=== PATIENT | male | born 1990 | race Caucasian/White ===

== ENCOUNTER 2022-09-02 09:16 | Emergency (ER) | payer MEDICAID ==
[~2022-09-02] VITALS: Ht 157.5 cm; Wt 52.2 kg
[2022-09-02 09:29] VITALS: BP 131/61
--- NOTE | 2022-09-02 10:16 | NUR ---
PT TAKEN TO ER BED 11
--- NOTE | 2022-09-02 10:42 | NUR ---
OBSERVED TO BE AWAKE AND QUIET IN WAITING ROOM. BECAME AGITATED WHEN BROUGHT IN TO ROOM. ASSISTED TO BED AND CHAGE TO GOWN, NO GUARDING OR GRIMACING WHEN ASSISTED BY STAFF
[2022-09-02] MEDS ORDERED: KETOROLAC 60 MG/2 ML VIAL IM ONE (10:55)
--- NOTE | 2022-09-02 11:13 | NUR ---
PT TAKEN TO CT VIA SHAUN
[2022-09-02] MEDS ORDERED: SODIUM PHOSPHATE 118 ML ENEM RC ONE (12:45)
--- NOTE | 2022-09-02 13:00 | NUR ---
PER PT SAM PLACE PITTS TO MEASURE AMOUNT OF URINE REMOVED, WILL CONTINUE DURING DISCHARGE
[2022-09-02 13:33] LABS: BASOPHILS % (AUTO) 0.1 % (0.0-2.0); EOSINOPHILS % (AUTO) 0.7 % (0.0-4.0); HEMATOCRIT 35.7 % (36-52); HEMOGLOBIN 12.2 g/dL (12.0-18.0); LYMPHOCYTES # (AUTO) 0.9 K/uL (2.0-11.5); LYMPHOCYTES % (AUTO) 12.7 % (20.5-51.1); MEAN CORPUSCULAR HEMOGLOBIN 33 pg (27-31); MEAN CORPUSCULAR HGB CONC 34 g/dL (33-37); MEAN CORPUSCULAR VOLUME 95.1 fL (80-94); MONOCYTES # (AUTO) 0.4 K/uL (0.8-1.0); MONOCYTES % (AUTO) 5.4 % (1.7-9.3); NEUTROPHILS # (AUTO) 5.7 K/uL (1.8-7.7); NEUTROPHILS % (AUTO) 81.1 % (42.2-75.2); PLATELET COUNT (AUTO) 50 K/uL (140-450); RED BLOOD CELL COUNT(AUTO) 3.75 MIL/uL (4.20-6.10); RED CELL DISTRIBUTION WIDTH 14.1 % (11.6-13.7)
[2022-09-02 13:39] VITALS: BP 128/61
[2022-09-02 13:42] LABS: APPEARANCE,URINE CLEAR (CLEAR); BILIRUBIN,URINE NEGATIVE (NEGATIVE); BLOOD, URINE NEGATIVE (NEGATIVE); COLOR,URINE YELLOW (YELLOW); LEUKOCYTE ESTERASE ,URINE TRACE (NEGATIVE); NITRITE, URINE NEGATIVE (NEGATIVE); UGLUCOSE NEGATIVE (NEGATIVE)
[2022-09-02 14:00] LABS: RBC,URINE 0-5 /HPF (0-5); WBC,URINE 0-5 /HPF (0-5)
[2022-09-02 14:19] LABS: ALBUMIN 2.7 g/dL (3.4-5.0); ANION GAP 14.9 (8-16); CARBON DIOXIDE 22.4 mmol/L (21-32); CREATININE 0.8 mg/dL (0.6-1.3); POTASSIUM 4.3 mmol/L (3.5-5.1); TOTAL BILIRUBIN 0.3 mg/dL (0.0-1.0)
[2022-09-02] MEDS ORDERED: CIPR500T4 PO (14:29)
--- NOTE | 2022-09-02 14:51 | NUR ---
PITTS DISCONTINUED REMOVED 1200CC OF CLOUDY ALEX COLORED URINE, NOTED LARGE SOFT BOWEL MOVEMENT, CHANGED DIAPER AND KEPT CLEAN AND DRY.
--- NOTE | 2022-09-02 14:52 | NUR ---
Patient discharged with v/s stable. Written and verbal after care instructions ABOUT CONSTIPATION AND ACUTE URINARY RETENTION given and explained. Patient alert, oriented and verbalized understanding of instructions. Ambulatory with steady gait. All questions addressed prior to discharge. ID band removed. Patient advised to follow up with PMD. Rx of CIPRO given. Patient educated on indication of medication including possible reaction and side effects. Opportunity to ask questions provided and answered.
== END 2022-09-02 14:52 | disposition home or self-care (01) ==
LOC: MED 09:16
DX: N13.9 Obstructive and reflux uropathy, unspecified (principal); K59.00 Constipation, unspecified; R10.9 Unspecified abdominal pain; Z79.899 Other long term (current) drug therapy
CPT/HCPCS: 36415; 71045; 74176; 80053; 81001; 83690; 85025; 87086; 96372; 99285; J1885

== ENCOUNTER 2022-10-14 09:48 | Inpatient (IN) | payer MEDICAID ==
[~2022-10-14] VITALS: Ht 162.6 cm; Wt 59.0 kg
[~2022-10-14 09:48] MED LIST: CIPR500T4 PO
--- NOTE | 2022-10-14 09:48 | NUR ---
Patient BIBA to bed 6.
[2022-10-14 09:52] VITALS: BP 93/68
[2022-10-14] MEDS ORDERED: OLANZapine 10 MG VIAL IM ONE ×2 (09:54→09:55)
[2022-10-14] MEDS ORDERED: NACL 0.9% 1,000 ML IV ONE ×2 (09:55→14:05)
[2022-10-14] MEDS ORDERED: DEXTROSE 50% 50 ML SYR IVP ONE (09:56)
[2022-10-14 10:46] LABS: HEMOGLOBIN 12.1 g/dL (12.0-18.0); MEAN CORPUSCULAR HEMOGLOBIN 33 pg (27-31); MEAN CORPUSCULAR HGB CONC 34 g/dL (33-37); MEAN CORPUSCULAR VOLUME 97.4 fL (80-94); RED CELL DISTRIBUTION WIDTH 17.5 % (11.6-13.7); WHITE BLOOD COUNT (AUTO) 14.5 K/uL (4.8-10.8)
[2022-10-14] MEDS ORDERED: PIPERACILLIN/TAZOBACTAM 3.375 GM in DEXTROSE 5% 50 ML IV ONE (10:55)
[2022-10-14 11:15] LABS: PLATELET COUNT (AUTO) 55 K/uL (140-450)
[2022-10-14 11:34] LABS: LYMPHOCYTES % (MANUAL) 4 % (20-46); MONOCYTES % (MANUAL) 12 % (5-12)
[2022-10-14] MEDS ORDERED: PIPERACILLIN/TAZOBACTAM 3.375 GM VIAL IV ONE ×2 (11:41→21:14)
[2022-10-14 11:42] LABS: ALBUMIN 1.8 g/dL (3.4-5.0); ANION GAP 18.3 (8-16); ASPARTATE AMINOTRANSFERASE 36 U/L (15-37); CARBON DIOXIDE 22.4 mmol/L (21-32); CHLORIDE 103 mmol/L (98-107); CREATININE 1.1 mg/dL (0.6-1.3); GFR ARICAN-AMERICAN 99 mL/min (>90); GLUCOSE 86 mg/dL (74-106); POTASSIUM 5.7 mmol/L (3.5-5.1); SODIUM SERUM 138 mmol/L (136-145); TOTAL BILIRUBIN 0.5 mg/dL (0.0-1.0); UREA NITROGEN, BLOOD 47 mg/dL (7-18)
[2022-10-14 12:53] LABS: BILIRUBIN,URINE 1+ (NEGATIVE); BLOOD, URINE 3+ (NEGATIVE); LEUKOCYTE ESTERASE ,URINE 2+ (NEGATIVE); NITRITE, URINE NEGATIVE (NEGATIVE); PH,URINE 6.5 (5.0-9.0); UGLUCOSE NEGATIVE (NEGATIVE)
[2022-10-14 13:11] LABS: APPEARANCE,URINE CLOUDY (CLEAR)
[2022-10-14 13:14] LABS: COLOR,URINE SLIGHT BLOODY (YELLOW); RBC,URINE >100 /HPF (0-5)
--- NOTE | 2022-10-14 13:18 | NUR ---
13:18 [facility], REGARDING PATIENT BEING ADMITTED.
[2022-10-14] MEDS ORDERED: CALC-1321 PO (14:31)
[2022-10-14] MEDS ORDERED: IBUP-1842 PO (14:31)
[2022-10-14] MEDS ORDERED: DOCU100T42 PO (14:31)
[2022-10-14] MEDS ORDERED: ACET-2619 PO (14:31)
[2022-10-14] MEDS ORDERED: OLAN20TA1 PO (14:31)
[2022-10-14] MEDS ORDERED: MIRABULK PO (14:31)
[2022-10-14] MEDS ORDERED: ASCO500T95 PO (14:31)
[2022-10-14] MEDS ORDERED: CLON1TAB PO (14:31)
[2022-10-14] MEDS ORDERED: PRON INH (14:31)
[2022-10-14] MEDS ORDERED: SERT25TA PO (14:31)
[2022-10-14] MEDS ORDERED: FAMO-90 PO (14:31)
[2022-10-14] MEDS ORDERED: ROB1 PO (14:31)
[2022-10-14] MEDS ORDERED: BUS5 PO (14:31)
[2022-10-14] MEDS ORDERED: MULT-2540 PO (14:31)
--- NOTE | 2022-10-14 15:16 | NUR ---
Patient will be admitted to care of or . Admited to Tele. Will go to room 124A. Belongings list completed. Report to SARA SNOWDEN.
--- NOTE | 2022-10-14 15:30 | NUR ---
RECEIVED PATIENT FROM ED. PATIENT TURNS AND TWISTS WHILE LYING ON BED. PATIENT VITALS CHECKED AND STABLE. PLAN OF CARE STARTED.
--- NOTE | 2022-10-14 19:20 | NUR ---
PATIENT SEEN LYING ON BED AWAKE. ENDORSED PATIENT TO PM NURSE FOR CONTINUATION OF CARE.
--- NOTE | 2022-10-14 19:25 | NUR ---
RECEIVED REPORT FROM DAY SHIFT RN FOR CONTINUITY OF CARE. PT IS RESTING IN BED NOT IN ANY DISTRESS. PT IS ON RA SATING 95%. BREATHING EVEN AND UNLABORED. PT HAS RIGHT HAND 20 GAUGE SALINE LOCK. POC DISCUSSED. SAFETY MEASURES TAKEN. WILL CONTINUE TO MONITOR THE PT.
[2022-10-14 20:00] VITALS: BP 112/75
[2022-10-14] MEDS ORDERED: ONDANSETRON 4 MG/2 ML VIAL IM/IVP PRN (20:35)
[2022-10-14] MEDS ORDERED: HYDROcodone/APAP 7.5/325 MG 1 TAB PO PRN (20:35)
[2022-10-14] MEDS ORDERED: ZOLPIDEM 5 MG TAB PO PRN (20:35)
[2022-10-14] MEDS ORDERED: DOCUSATE SODIUM 100 MG GELCAP PO PRN (20:35)
[2022-10-14] MEDS ORDERED: POTASSIUM CHLORIDE 10 MEQ TABER PO PRN (20:35)
[2022-10-14] MEDS ORDERED: guaiFENesin DM 200/20 MG-10 ML 10 ML UDC PO PRN (20:35)
--- NOTE | 2022-10-14 21:00 | NUR ---
PT IV ON RIGHT HAND WAS NOT WORKING. NEW IV INSERTED ON RIGHT FOREARM 20 GAUGE. PATENT AND INTACT.
[2022-10-14 21:05] LABS: CHOL/HDL RATIO 1.8 (1-4.5); FREE T4 (FREE THYROXINE) 1.38 ng/dL (0.76-1.46); PHOSPHORUS 5.9 mg/dL (2.5-4.9); THYROID STIMULATING HORMONE 10.23 uIU/mL (0.34-3.74)
[2022-10-14] MEDS: PIPERACILLIN/TAZOBACTAM 3.375 GM in DEXTROSE 5% 50 ML IV SCH (21:22)
--- NOTE | 2022-10-14 21:22 | NUR ---
SCHEDULE MEDICATION GIVEN. NO ADVERSE REACTION NOTED. WILL CONTINUE TO MONITOR THE PT.
[2022-10-15] VITALS: BP 116/64
[2022-10-15] MEDS ORDERED: PIPERACILLIN/TAZOBACTAM 3.375 GM VIAL IV ONE ×2 (00:12→05:31)
[2022-10-15] MEDS: PIPERACILLIN/TAZOBACTAM 3.375 GM in DEXTROSE 5% 50 ML IV SCH ×5 (00:54→23:35)
--- NOTE | 2022-10-15 00:59 | NUR ---
TUBE FEEDING STARTED PER MD ORDER.
[2022-10-15 04:00] VITALS: BP 98/50
[2022-10-15 05:33] LABS: EOSINOPHILS # (AUTO) 0.1 K/uL (0-0.4); EOSINOPHILS % (AUTO) 0.4 % (0.0-4.0); HEMATOCRIT 32.1 % (36-52); HEMOGLOBIN 10.9 g/dL (12.0-18.0); LYMPHOCYTES # (AUTO) 0.5 K/uL (2.0-11.5); LYMPHOCYTES % (AUTO) 3.9 % (20.5-51.1); MEAN CORPUSCULAR HEMOGLOBIN 33 pg (27-31); MEAN CORPUSCULAR HGB CONC 34 g/dL (33-37); MEAN CORPUSCULAR VOLUME 97.2 fL (80-94); NEUTROPHILS % (AUTO) 86.7 % (42.2-75.2); PLATELET COUNT (AUTO) 58 K/uL (140-450); RED CELL DISTRIBUTION WIDTH 17.8 % (11.6-13.7); WHITE BLOOD COUNT (AUTO) 11.6 K/uL (4.8-10.8)
--- NOTE | 2022-10-15 05:55 | NUR ---
PT WAS CLEANED AND CHANGED. TOLERATED IT WELL.
[2022-10-15 05:57] LABS: ANION GAP 14.7 (8-16); CARBON DIOXIDE 24.2 mmol/L (21-32); CREATININE 0.9 mg/dL (0.6-1.3); POTASSIUM 4.9 mmol/L (3.5-5.1)
[2022-10-15] MEDS: ALBUTEROL SULFATE/IPRATROPIU 3 ML SOL IH SCH ×4 (07:06→19:47)
--- NOTE | 2022-10-15 07:26 | NUR ---
ENDORSED PT TO DAY SHIFT NURSE FOR CONTINUITY OF CARE. PT IS STABLE.
--- NOTE | 2022-10-15 07:27 | NUR ---
RECEIVED PATIENT FROM PM SHIFT NURSE FOR CONTINUATION OF CARE. PATIENT SEEN ON BED ASLEEP WITH NORMAL RISE AND FALL OF CHEST. PATIENT CARE PLAN AND MONITORING RESUMED.
[2022-10-15 08:00] VITALS: BP 112/75
--- NOTE | 2022-10-15 08:37 | NUR ---
PT RESTING IN BED WITH NO RESPIRATORY DISTRESS NOTED. SATURATION WAS 95% ON ROOM AIR. PT DID NOT TOLERATE MASK FOR HHN TREATMENT. PT BECAME AGITATED. INSTEAD USED MOUTHPIECE. PT WAS COMPLIANT. NO ADVERSE REACTIONTO TREATMENT NOTED. WILL CONTINUE TO MONITOR PT.
--- NOTE | 2022-10-15 09:00 | NUR ---
RESIDUAL VOLUME CHECKED PRIOR TO MEDICATION ADMINISTRATION. RESIDUAL VOLUME 10ML
--- NOTE | 2022-10-15 09:00 | NUR ---
PATIENT IN PAIN WHILE BEING CHANGED. PULLED PRESCRIBED MORPHINE PRN MEDICATION. ADMINISTERED MORPHINE. EVALUATION OF PAIN WILL BE RECHECKED AT 0930.
--- NOTE | 2022-10-15 09:05 | NUR ---
PATIENT HAS BEEN SCREENED AND CATEGORIZED HIGH NUTRITION RISK. PATIENT WILL BE SEEN WITHIN 1-2 DAYS OF ADMISSION. 10/14/22-10/16/22 REFERRAL RECIVED FOR TUBE FEEDING ON 10/15/22 PT WILL BE SEEN WITHIN 1-2 DAYS. REVIEWED BY SORAYA JEFFERS RD
--- NOTE | 2022-10-15 09:30 | NUR ---
PATIENT RELAXED WITH NEW LINENS AND GOWNS.
[2022-10-15] MEDS: OLANZapine 5 MG TAB PO SCH (10:17)
[2022-10-15] MEDS: SERTRALINE 50 MG TAB PO SCH (10:18)
[2022-10-15] MEDS: busPIRone 5 MG TAB PO SCH (10:18)
[2022-10-15] MEDS: PANTOPRAZOLE 40 MG TABEC PO SCH (10:18)
--- NOTE | 2022-10-15 11:18 | NUR ---
DC PLANNIN YRS OLD MALE PATINT WAS ADMITTED FROM CARE HOME WITH A DX OF SEPSIS AND PNEUMONIA. PATIENT HAS A HX OF CEREBRAL PALSY ,INTELLECTUAL DISABILITY, G-TUBE. CXR SHOWED RT MULTILOBAR PNEUMONIA. RAPID COVID TEST NEGATIVE. ADMINISTERED IVF, IV ABX ZOSYN AND CONTINUED HOME MEDS. CONSULTED WITH PULMO. DC PLAN TO RETURN TO CARE HOME. CM TO FOLLOW Addendum: 10/21/22 at 1143 by JUSTIN DE JESUS CM DC PLANNING STILL INTUBATED.ON CPAP TODAY.ON LEVOPHED,FENTANYL AND PROPOFOL.HAD 1 UNIT PRBC FOR HBG 6.5.LATEST 7.7.CM TO FOLLOW. Addendum: 10/23/22 at 1123 by JUSTIN DE JESUS CM DC PLANNING PT STILL VENTED.TOLERATING CPAP TRIALS THE PAST 2 DAYS.STILL ON PRESSOR ,PROPOFOL AND FENTANYL DRIPS.TALKED TO CM IRC ([facility]) CM REGARDING MEDICAL DECISION MAKER.CONSENT CAN BE GIVEN BY SAME CM, JUSTIN ORBINRAIZA @ FOR INVASIVE PROCEDURES.CM TO FOLLOW. Addendum: 10/25/22 at 1344 by JUSTIN DE JESUS CM DC PLANNING PATIENT STILL INTUBATED BUT TOLERATING DAILY CPAP TRIALS.ON LEVO,FENTANYL,PROPOFOL AND PRECEDEX DRIPS.VENT SUPPORT PER PULMO.CM TO FOLLOW. Addendum: 10/29/22 at 1635 by JUSTIN DE JESUS CM DC PLANNING FAILING CPAP TRIALS.CONSENT FOR TRACHEOSTOMY BEING OBTAINED FROM [facility] .THORACENTESIS DONE .STILL ON LEVOPHED AND PROPOFOL DRIPS.PULMO FOLLOWING.CM TO FOLLOW. Addendum: 10/31/22 at 0835 by JUSTIN DE JESUS CM DC PLANNING CONSENT FOR TRACHEOSTOMY FAXED YESTERDAY TO ICU.PATIENT IS SCHEDULED FOR TRACHEOSTOMY AT 1120 TODAY.CM TO FOLLOW. Addendum: 11/05/22 at 1411 by JUSTIN DE JESUS CM DC PLANNING PATIENT ON MIDODRINE .LEVOPHED TITRATED DOWN.B/P STABLE SO FAR.FOR TRACHEOSTOMY TODAY.NOT DONE YESTERDAY.PATIENT HAS A PEG ALREADY.DC PLAN- TO [facility] WHEN STABLE FOR SNF PLACEMENT.CM TO FOLLOW. Addendum: 11/06/22 at 1422 by JUSTIN DE JESUS CM DC PLANNING TRACHEOSTOMY NOT DONE 11/05/22.LEVOPHED RESTARTED.ON FENTANYL AND PROPOFOL DRIPS.FOR TRACH TOMORROW.
--- NOTE | 2022-10-15 11:30 | NUR ---
NUTRITION CHANGED RATE OF TUBE FEEDING TO 60ML/HR 150 ML WATER Q6H
[2022-10-15 12:00] VITALS: BP 96/62
--- NOTE | 2022-10-15 12:18 | NUR ---
DC PLANNING ASSESSMENT COMPLETE PLEASE REFER TO ASSESSMENT FOR ADDITIONAL DETAILS RYANNE REPORTS DC PLAN IS FOR PT TO RETURN TO [facility], ONCE MEDICALLY STABLE. PT IS A 32 YR OLD MALE ADMITTED TO [facility] FROM [facility] ([facility]) WITH DX OF PNA/SEPSIS. PT IS [facility] CONNECTED; MARCELA SEVERINO; JUSTIN FERGUSON [phone]. [facility] IS REPORTED TO PROVIDE ALL MEDICAL CONSENTS. PATIENT IS REPORTED TO HAVE NO FAMILY INVOLVEMENT. Addendum: 10/15/22 at 1220 by Kareem Choi SS Amended: Links added.
--- NOTE | 2022-10-15 14:19 | NUR ---
PT NOT GIVEN TREATMENT AT 1333. ORDER IS Q6 WHILE AWAKE. PATIENT WAS ASLEEP AND BECAME VERY AGITATED WHEN I TRIED TO WAKE HIM UP. HE DID NOT WANT TO WAKE UP AND DID NOT WANT THE TXN.
--- NOTE | 2022-10-15 15:24 | NUR ---
10/15/22 INITIAL ASSESSMENT COMPLETED PLEASE REFER TO NUTRITION ASSESSMENT UNDER CARE ACTIVITY FOR ESTIMATED NUTRITIONAL NEEDS. 1. RECOMMEND INCREASING TO GLUCERNA 1.2 @ 60 ML/HR TOLERATED -FWF: 150 ML Q6H - INCREASE BY 10 ML Q4H TOLERATED. -AT GOAL RATE, PATIENT WILL RECEIVE 1440 ML VOLUME, 1728 KCAL, 79 GRAMS PROTEIN AND 1762 ML FW. THIS MEETS 100% OF PATIENTS ESTIMATED NUTRIENT NEEDS. -IF EXTUBATED RECOMMEND SWALLOW EVAL. 2. MONITOR GI, GASTRIC RESIDUALS, AND LAB VALUES 3. RD TO FOLLOW-UP 3-5 DAYS, MODERATE RISK REVIEWED BY SORAYA JEFFERS RD
[2022-10-15 16:00] VITALS: BP 101/63
--- NOTE | 2022-10-15 18:00 | NUR ---
PATIENT COUGHED UP SPUTUM, BUT WAS NOT ENOUGH TO COLLECT
--- NOTE | 2022-10-15 19:30 | NUR ---
RECEIVED REPORT FROM DAY SHIFT RN FOR CONTINUITY OF CARE. PT IS CURRENTLY RESTING IN BED. NONVERBAL. PT HAS RIGHT FOREARM 20 GAUGE SALINE LOCK. PT IS ON GTUBE FEEDING. GLUCERNA 1.2 RATE 60 CC/HR FWF 150 CC Q6H PER FEEDER TENDER RECOMMENDATIONS. SAFETY MEASURES TAKEN. WILL CONTINUE TO MONITOR THE PT.
--- NOTE | 2022-10-15 19:30 | NUR ---
ENDORSED PATIENT TO PM NURSE FOR CONTINUATION OF CARE
--- NOTE | 2022-10-15 19:51 | NUR ---
DID NOT ADMINISTER PT'S SCHEDULED HHN TX. PT HR RANGING FROM 116-130. PT SPO2 IS 92% ON ROOM AIR, NO DISTRESS NOTED.
[2022-10-15 20:00] VITALS: BP 110/62
--- NOTE | 2022-10-15 22:39 | NUR ---
PT WAS CLEANED AND CHANGED. TOLERATED IT WELL.
[2022-10-15] MEDS: MORPHINE SULFATE 2 MG/ML SYR IVP PRN (23:40)
[2022-10-16] VITALS: BP 112/58
--- NOTE | 2022-10-16 03:01 | NUR ---
PT HR HAS BEEN TRENDING UP FROM START OF SHIFT. GOING FROM 115 TO 130S. NOW HR IS 140S. MESSAGED AUTOMOTIVE SERVICE PROFESSIONAL DR. FALL. WAITING FOR RESPONDS.
[2022-10-16] MEDS: ACETAMINOPHEN 325 MG TAB PO PRN ×3 (03:43→20:06)
--- NOTE | 2022-10-16 03:43 | NUR ---
PT IS NOW HAVING A FEVER OF 101.8. TYLENOL AND COOLING MEASURES TAKEN.
[2022-10-16 04:00] VITALS: BP 111/55
[2022-10-16] MEDS: PIPERACILLIN/TAZOBACTAM 3.375 GM in DEXTROSE 5% 50 ML IV SCH ×3 (05:13→17:27)
[2022-10-16 05:31] LABS: BASOPHILS % (AUTO) 0.1 % (0.0-2.0); EOSINOPHILS % (AUTO) 0.2 % (0.0-4.0); HEMATOCRIT 28.8 % (36-52); HEMOGLOBIN 9.8 g/dL (12.0-18.0); LYMPHOCYTES # (AUTO) 0.7 K/uL (2.0-11.5); MEAN CORPUSCULAR HEMOGLOBIN 33 pg (27-31); MEAN CORPUSCULAR HGB CONC 34 g/dL (33-37); MEAN CORPUSCULAR VOLUME 97.9 fL (80-94); MONOCYTES # (AUTO) 1.1 K/uL (0.8-1.0); MONOCYTES % (AUTO) 8.2 % (1.7-9.3); NEUTROPHILS # (AUTO) 11.4 K/uL (1.8-7.7); NEUTROPHILS % (AUTO) 86.5 % (42.2-75.2); PLATELET COUNT (AUTO) 80 K/uL (140-450); RED BLOOD CELL COUNT(AUTO) 2.94 MIL/uL (4.20-6.10); RED CELL DISTRIBUTION WIDTH 17.7 % (11.6-13.7); WHITE BLOOD COUNT (AUTO) 13.1 K/uL (4.8-10.8)
[2022-10-16 06:08] LABS: ANION GAP 14.1 (8-16); CARBON DIOXIDE 24.5 mmol/L (21-32); CREATININE 1.1 mg/dL (0.6-1.3); POTASSIUM 4.6 mmol/L (3.5-5.1)
--- NOTE | 2022-10-16 07:15 | NUR ---
RECEIVED REPORT FROM HOME INSPECTOR NURSE FOR CONTINUITY OF CARE. PT STABLE.
--- NOTE | 2022-10-16 07:20 | NUR ---
ENDORSED PT TO DAY SHIFT RN FOR CONTINUITY OF CARE. PT IS STABLE.
[2022-10-16] MEDS: ALBUTEROL SULFATE/IPRATROPIU 3 ML SOL IH SCH ×3 (07:48→19:43)
[2022-10-16 08:00] VITALS: BP 92/47
[2022-10-16] MEDS: busPIRone 5 MG TAB PO SCH (08:38)
[2022-10-16] MEDS: OLANZapine 5 MG TAB PO SCH (08:38)
[2022-10-16] MEDS: PANTOPRAZOLE 40 MG TABEC PO SCH (08:40)
[2022-10-16] MEDS: SERTRALINE 50 MG TAB PO SCH (08:41)
--- NOTE | 2022-10-16 09:00 | NUR ---
NOTIFIED THAT PTS HR WAS 130 THIS MORNING AND SHE SAID WE WILL CONTINUE TO MONITOR. SHE STATED IF IT STAYS UP THERE TO MESSAGE HER.
[2022-10-16 12:00] VITALS: BP 108/50
--- NOTE | 2022-10-16 14:06 | NUR ---
PT. WITH LOW GENIE SCALE AT HIGH RISK, CONTINUE TO FOLLOW PRESSURE INJURY PREVENTION INTERVENTIONS. -POSITIONING: TURN AND REPOSITION PATIENT Q 2H OR SOONER USE PILLOWS TO KEEP BONY PROMINENCES FROM DIRECT CONTACT WITH SURFACES USE REPOSITIONING WEDGES TO PROVIDE 30-DEGREE ANGLE FOR SIDE LYING POSITIONS OFFLOADING OR FOAM DRESSING TO ALL TUBING TO PREVENT MEDICAL DEVICES RELATED PRESSURE INJURY -RE-EVALUATING AND MANAGING INCONTINENCE MONITOR SKIN CONDITION DURING POSITION CHANGE DO NOT MASSAGE REDNESS, BONY PROMINENCES FREQUENT CHRISTOPHER-CARE AND PROVIDE BARRIER CREAMS PRN IF SOILING MOISTURE CONTROL BY OFFER BED MAGANA/URINAL /ABSORBENT PAD TO WICK AND HOLD MOISTURE KEEP SKIN DRY AND PROTECT FROM FRICTION -MANAGE FRICTION/SHEAR/MOBILITY KEEP HOB AT THE LOWEST LEVEL OF ELEVATION NO MORE THAN 30 DEGREE UNLESS OTHERWISE CONTRAINDICATED USE LIFT SHEET OR TRANSFER DEVICE TO MOVE PATIENT AND PREVENT LATERAL SHEER. PROTECT HEELS, ELBOWS BONY PROMINENCES WITH SKIN BERRIES OR FOAM DRESSING IF EXPOSED TO FRICTION OFFLOAD BILATERAL HEELS BY PLACING PILLOWS UNDER CALVES AT ALL TIMES, UNLESS OTHERWISE CONTRAINDICATED -PRESSURE REDISTRIBUTION SURFACE THERAPY TAWANNA ISOFLEX MATTRESS -NUTRITION: PLEASE FOLLOW RD RECOMMENDATIONS AND OFFER NUTRITION SUPPLEMENTS IF ORDERED. PLEASE CONTACT WOUND CARE NURSE FOR ANY QUESTION AND CHANGE OF WOUND CONDITION.
--- NOTE | 2022-10-16 14:25 | NUR ---
SATURATION 89% ON ROOM AIR; POST HHN THERAPY PLACED ON SUPPLEMENTAL OXYGEN AT 2 LPM VIA NC; SUZY/RN NOTIFIED
--- NOTE | 2022-10-16 14:28 | NUR ---
SPUTUM SAMPLE COLLECTED; FORWARDED TO LAB; SUZY/RN NOTIFIED
[2022-10-16 16:00] VITALS: BP 109/54
[2022-10-16] MEDS ORDERED: VANCOMYCIN PER PHARMACY MC PRN (18:45)
--- NOTE | 2022-10-16 19:20 | NUR ---
ENDORSED PT TO WIND TURBINE MECHANICAL ENGINEER NURSE FOR CONTINUITY OF CARE. PT STABLE AT THIS TIME.
--- NOTE | 2022-10-16 19:21 | NUR ---
RECEIVED PATIENT AWAKE, NO SOB NOTED. IV SITE TO RIGHT FOREARM SALINE LOCK. TUBE FEEDING GLUCERNA 1.2 RUNNING 60 ML/HR. BED WHEELS LOCKED IN LOW POSITION. ALL SAFETY MEASURES ARE IN PLACE. CALL LIGHT ON EASY REACH.
[2022-10-16 20:00] VITALS: BP 114/56
[2022-10-16] MEDS: VANCOMYCIN 750 MG in DEXTROSE 5% 250 ML IV SCH (20:05)
--- NOTE | 2022-10-16 20:05 | NUR ---
ADMINISTERED SCHEDULED MEDICATION PER MD ORDER.
[2022-10-17] VITALS (10 sets, daily range): BP systolic 90–123; BP diastolic 57–78
[2022-10-17] MEDS: PIPERACILLIN/TAZOBACTAM 3.375 GM in DEXTROSE 5% 50 ML IV SCH ×5 (00:08→23:12)
[2022-10-17 05:10] LABS: EOSINOPHILS % (AUTO) 0.1 % (0.0-4.0); HEMATOCRIT 27.1 % (36-52); LYMPHOCYTES # (AUTO) 0.9 K/uL (2.0-11.5); LYMPHOCYTES % (AUTO) 6.6 % (20.5-51.1); MEAN CORPUSCULAR HEMOGLOBIN 33 pg (27-31); MEAN CORPUSCULAR HGB CONC 33 g/dL (33-37); MEAN CORPUSCULAR VOLUME 98.7 fL (80-94); MONOCYTES # (AUTO) 1.1 K/uL (0.8-1.0); NEUTROPHILS # (AUTO) 12.2 K/uL (1.8-7.7); NEUTROPHILS % (AUTO) 85.3 % (42.2-75.2); PLATELET COUNT (AUTO) 92 K/uL (140-450); RED BLOOD CELL COUNT(AUTO) 2.75 MIL/uL (4.20-6.10); RED CELL DISTRIBUTION WIDTH 17.8 % (11.6-13.7); WHITE BLOOD COUNT (AUTO) 14.2 K/uL (4.8-10.8)
[2022-10-17 05:30] LABS: ANION GAP 16.3 (8-16); CARBON DIOXIDE 26.5 mmol/L (21-32); CREATININE 1.1 mg/dL (0.6-1.3); POTASSIUM 4.8 mmol/L (3.5-5.1)
--- NOTE | 2022-10-17 06:31 | NUR ---
PATIENT KEEP ON PULLING OUT HIS OXYGEN.
[2022-10-17] MEDS: ACETAMINOPHEN 325 MG TAB PO PRN (07:46)
[2022-10-17] MEDS: ALBUTEROL SULFATE/IPRATROPIU 3 ML SOL IH SCH ×3 (07:57→20:27)
--- NOTE | 2022-10-17 07:57 | NUR ---
RECEIVED ON SUPPLEMENTAL OXYGEN AT 5 LPM VIA NC SATURATION 88%; POST HHN THERAPY INCREASED FIO2 TO 6 LPM TO KEEP SATURATION GREATER THAN 90%; JANES/SARA NOTIFIED
--- NOTE | 2022-10-17 08:00 | NUR ---
GOT REPORT FROM THE NIGHT NURSE , PT KEEP REMOVING NC. ASSESSMENT IS DONE.[id number]
[2022-10-17] MEDS: PANTOPRAZOLE 40 MG TABEC PO SCH (09:00)
[2022-10-17] MEDS: OLANZapine 5 MG TAB PO SCH (09:00)
[2022-10-17] MEDS: busPIRone 5 MG TAB PO SCH (09:00)
[2022-10-17] MEDS: SERTRALINE 50 MG TAB PO SCH (09:00)
[2022-10-17] MEDS: VANCOMYCIN 750 MG in DEXTROSE 5% 250 ML IV SCH ×2 (09:09→20:12)
--- NOTE | 2022-10-17 09:48 | NUR ---
LICENSED ARCHITECT CALLED TO BEDSIDE BY PRAVEENA/SARA FOR DESCENDING OXYGEN SATURATION TO 85%; SUPPLEMENTAL OXYGEN AT 5 LPM VIA NC SATURATION NOW AT 89% TO 90%; CHANGED OXYGEN DEVICE TO A CURAPLEX/BUBBLE HUMIDIFIER AT 8 LPM TO KEEP SATURATION GREATER THAN 90%; LICENSED ARCHITECT TO MONITOR Addendum: 10/17/22 at 1031 by Peter Cannon RT CURAPLEX = CURAPLEX NASAL CANNULA
--- NOTE | 2022-10-17 10:00 | NUR ---
SUPPLEMENTAL OXYGEN AT 8 LPM VIA CURAPLEX NASAL CANNULA/BUBBLE HUMIDIFIER; SATURATION 93; ANISH/RN NOTIFIED
[2022-10-17] MEDS ORDERED: ACETAMINOPHEN 650 MG SUPP RC PRN (10:30)
[2022-10-17] MEDS ORDERED: ACETAMINOPHEN 650 MG SUPP RC ONE (10:35)
--- NOTE | 2022-10-17 10:45 | NUR ---
ACETAMINOPHEN SUPP WAS GIVEN FOR TEMP 101 INSTEAD OF THE PO. WE PROVIDED COOLING MEASURE. MNSANTIAGOUM
[2022-10-17] MEDS: MORPHINE SULFATE 2 MG/ML SYR IVP PRN (11:20)
--- NOTE | 2022-10-17 13:34 | NUR ---
AGAIN PT TEMP 103.7 TEMPORAL, GAVE AGAIN TYLENOL 650MG VIA G PORT. COOLING MEASURE IN PLACE, HR 122 BP 108/71 BREATHING 24 02 SATURATION 95%. [id number]
--- NOTE | 2022-10-17 13:50 | NUR ---
POST HHN THERAPY INCREASED FIO2 TO 10 LPM AZJAYLYNA/RN NOTIFIED; ESCROW ASSISTANT REVIEWED WITH JANES/RN PATIENT WORSENING PULMONARY STATUS AND DESCENDING SATURATION TO 90% TO 91% ON 8 LPM VIA CURAPLEX NASAL CANNULA/BUBBLE HUMIDIFIER; ESCROW ASSISTANT AND RN CONSENSUS TO CONTACT PCP DR. ANITA FALL
--- NOTE | 2022-10-17 13:50 | NUR ---
ON OR ABOUT THIS TIME WELT POCKET MACHINE OPERATOR TEXTED DR. ANITA FALL VIA [employer] CELL PHONE ON CURRENT PATIENT WORSENING PULMONARY STATUS; BREATH SOUNDS DIMINISHED LEFT SIDE DECREASED RIGHT SIDE; DESCENDING SATURATION OF 90% T0 91% ON 8 LPM VIA NASAL CANNULA; TACHYPNEIC AT 40 BPM; HYPERTHERMIA AT 103.0 T; WELT POCKET MACHINE OPERATOR SUGGESTION OF STAT ABG AND CXR; FOREMENTIONED MD RESPONSE OF "SURE"; STAT ABG ORDERED BY WELT POCKET MACHINE OPERATOR; STAT CXR ORDERED BY RN
--- NOTE | 2022-10-17 13:55 | NUR ---
TRANSFERRED PATIENT TO ICU-3; SUPPLEMENTAL OXYGEN VIA E-TANK AT 10 LPM VIA CURAPLEX NASAL CANNULA; TOLERATED TRANSFER WELL WITHOUT COMPLICATIONS NOTED; SATURATION 93% HR 114 Addendum: 10/17/22 at 1735 by Peter Cannon RT ACTUAL TRANSFER TIME 1455 Addendum: 10/17/22 at 1736 by Peter Cannon RT CORRECTED TRANSFER TIME [id number]
--- NOTE | 2022-10-17 14:12 | NUR ---
RADIOLOGY AT BEDSIDE FOR STAT CXR
--- NOTE | 2022-10-17 14:20 | NUR ---
STAT ABG COMPLETED; TOLERATED ABG PUNCTURE WELL WITHOUT ADVERSE REACTIONS NOTED
--- NOTE | 2022-10-17 14:42 | NUR ---
CALLED DR. MILENA KAYE AT [facility] [phone] TO REVIEW ABG AND CXR RESULTS: SHAE/EXCHANGE TO FILEMON MANTILLA MD; PATIENT INFORMATION AND CALL BACK NUMBER GIVEN
--- NOTE | 2022-10-17 14:50 | NUR ---
CALL BACK FRO DR. MILENA KAYE; REVIEWED [facility] PATIENT ASSESSMENT; CXR; ABG TORBO DR. KAYE: CHANGE HHN THERAPY FFEQUNCY TO Q6 WITH UD DUONEB AND 1ml/20% MUCOMYST; DUONEB Q4 PRN FOR SOB; CHEST PHYSIOTHERAPY X 4 TODAY THEN X 2 TOMORROW (10/18); HIGH FLOW NASAL CANNULA; KEEP OXYGEN SATURATION GREATER THAN 90%
--- NOTE | 2022-10-17 15:15 | NUR ---
ON OR ABOUT THIS TIME; DUE TO WORSENING RESPIRATORY STATUS PATIENT TRANSFERRING TO ICU; VORBO PLUS CCN AT 1506 DR. MILENA KAYE; PBX MANAGER TO SET UP HIGH FLOW NASAL CANNULA IN ICU
--- NOTE | 2022-10-17 15:55 | NUR ---
TRANSFER TO ICU-3; REFER NOTATION AT [id number]
--- NOTE | 2022-10-17 16:10 | NUR ---
PLACED ON A VAPOTHERM HIGH NASAL CANNULA NOTED; PLUGGED INTO RED OUTLET TOLERATING WELL WITHOUT ADVERSE REACTIONS NOTED; HARVEY/CHOKER HOOKER NOTIFIED
--- NOTE | 2022-10-17 16:15 | NUR ---
Transfer to ICU Received report on pt. Pt awake and yelling, does not follow commands, placed on high flow O2 25L FiO2 60%. According to report, pt also with fever 100.9, current temp 99.3. Pt also received tylenol PRN. Placed pt on cooling measures. IV site intact, patent. Received pt with mittens bilaterally, pt is contracted but is resistive to care and moves hands and arms.
[2022-10-17] MEDS: ACETYLCYSTEINE 20% (200 MG/ML) 200 MG/ML VIAL INH SCH (18:00)
--- NOTE | 2022-10-17 18:27 | NUR ---
Closing Pt in no signs of distress, no signs of pain noted. Still resistive to care. Will endorse plan of care to RN.
--- NOTE | 2022-10-17 19:20 | NUR ---
TRANSFER OF CARE FROM DAY SHIFT, REPORT RECEIVED FROM SARA NELSON. PATIENT RECEIEVED AWAKE AND ALERT; PATIENT IS NONVERBAL; PATIENT IS LYING IN BED ON LEFT SIDE. PATIENT HAS 20 IN THE RIGHT FOREARM AND 20G IN THE RIGHT HAND. HAS THE FOLLOWING MEDICATIONS INFUSING: NORMAL SALINE (TKO) PATIENT IS NON-AMBULATORY. VITAL SIGNS AT START OF SHIFT ARE FOLLOWS: T = 98.2F, HR =112, R = 19 O2 SAT = 98%, AND BP = 106/70. WILL CONTINUE TO MONITOR PATIENT FOR ANY CHANGE IN CONDITION AND NOTIFY MD INDICATED.
[2022-10-18] VITALS (15 sets, daily range): BP systolic 72–119; BP diastolic 23–74
[2022-10-18] MEDS: ALBUTEROL SULFATE/IPRATROPIU 3 ML SOL IH SCH ×4 (01:39→19:13)
[2022-10-18] MEDS: ACETYLCYSTEINE 20% (200 MG/ML) 200 MG/ML VIAL INH SCH ×4 (01:39→19:13)
[2022-10-18] MEDS: ALBUTEROL SULFATE/IPRATROPIU 3 ML SOL IH PRN (03:53)
[2022-10-18 05:31] LABS: BASOPHILS % (AUTO) 0.1 % (0.0-2.0); EOSINOPHILS % (AUTO) 0.2 % (0.0-4.0); HEMATOCRIT 23.7 % (36-52); HEMOGLOBIN 7.9 g/dL (12.0-18.0); LYMPHOCYTES # (AUTO) 1.2 K/uL (2.0-11.5); LYMPHOCYTES % (AUTO) 11.4 % (20.5-51.1); MEAN CORPUSCULAR HEMOGLOBIN 33 pg (27-31); MEAN CORPUSCULAR HGB CONC 33 g/dL (33-37); MEAN CORPUSCULAR VOLUME 98.6 fL (80-94); MONOCYTES # (AUTO) 1.2 K/uL (0.8-1.0); MONOCYTES % (AUTO) 11.7 % (1.7-9.3); NEUTROPHILS % (AUTO) 76.6 % (42.2-75.2); PLATELET COUNT (AUTO) 93 K/uL (140-450); RED CELL DISTRIBUTION WIDTH 17.6 % (11.6-13.7); WHITE BLOOD COUNT (AUTO) 10.4 K/uL (4.8-10.8)
[2022-10-18] MEDS: PIPERACILLIN/TAZOBACTAM 3.375 GM in DEXTROSE 5% 50 ML IV SCH ×3 (05:33→17:37)
[2022-10-18 05:48] LABS: ANION GAP 12.2 (8-16); CARBON DIOXIDE 29.7 mmol/L (21-32); POTASSIUM 3.9 mmol/L (3.5-5.1)
--- NOTE | 2022-10-18 07:15 | NUR ---
RECEIVED REPORT FROM PHOTOENGRAVING MACHINE OPERATOR/TENDER RNLEIGHA FOR CONTINUITY OF CARE. PT RECEIVED AWAKE, NONVERBAL WITH HIGH FLOW OXYGENATION AT 60% AT 30L/MIN - 02 SATURATION OF 95%. LABORED BREATHING NOTED WITH RESPIRATORY RATE OF 38 CPM. ON G-TUBE FEEDING WITH GLUCERNA 1.2 RATE OF 60 CC/HR WITH FWF OF 150 CC Q6H PER JAVASCRIPT WEB DEVELOPER RECOMMENDATIONS. WITH 2 PERIPHERAL IV OF GAUGE 20 OVER RIGHT FOREARM - ONE ATTACHED TO SALINE LOCK, ONE FLOWING TO NS AT TKO - PATENT AND INTACT. BILATERAL MITTENS NOTED RESTARINTS. SAFETY MEASURES TAKEN. WILL CONTINUE TO MONTIOR PT.
--- NOTE | 2022-10-18 07:23 | NUR ---
TRANSFER OF CARE TO DAY SHIFT, CARE OF PATIENT ENDORSED TO RUBIA
--- NOTE | 2022-10-18 08:00 | NUR ---
SEEN AND EXAMINED BY DR. FALL. UPDATED PT INFORMATION. NO NEW ORDERS MADE.
--- NOTE | 2022-10-18 08:05 | NUR ---
INCREASED TEMPERATURE NOTED - 102.2 F. TEPID SPONGE BATH DONE. PRN MEDICATION OF ACETAMINOPHEN GIVEN PER G-TUBE. KEPT COOL. MONITORED TEMPERATURE CLOSELY.
--- NOTE | 2022-10-18 08:25 | NUR ---
INTUBATION DONE AT BEDSIDE BY DR. KAYE. CXR DONE RIGHT AFTER TO CONFIRM PLACEMENT. Addendum: 10/18/22 at 1503 by KEI WHITLEY RN ETOMIDATE 20MG AND ROCURONIUM BROMIDE 50 MG GIVEN IV PUSH PER DR. VAUGHAN'S ORDER PRIOR INTUBATION.
[2022-10-18] MEDS ORDERED: ETOMIDATE 20 MG/10 ML VIAL IVP ONE (08:30)
[2022-10-18] MEDS ORDERED: ROCURONIUM 50 MG/5 ML VIAL IV ONE (08:30)
[2022-10-18] MEDS: PROPOFOL 1000 MG/100 ML PREMIX 100 ML IV PRN ×3 (09:00→21:49)
--- NOTE | 2022-10-18 09:00 | NUR ---
@0830 PT WAS INTUBATED BY DR KAYE WITH ETT 7.5 SECURED @22CM TEETH. POSITIVE COLORMETRIC, BILATERAL BREATHE SOUNDS, XRAY CONFIRMED PLACEMENT 3.2 CM ABOVE VICTOR MANUEL. PT IS ON AC VC 450 RR 18 FIO2 100% +5. VENT IS PLUGGED INTO RED OUTLET ABMU BAG AT BEDSIDE, AND ALARMS ARE SET AND AUDIBLE. @0840 DR KAYE PREFORMED PROCEDURE BRONCHOSCOPY AND OBTAINED SAMPLES FROM BOTH LOWER LOBES. SEPARATE SAMPLES WERE GIVEN TO LAB TO BE ANALYZED . WILL CONTINUE TO MONITOR PT.
--- NOTE | 2022-10-18 09:15 | NUR ---
PROPOFOL CONTINUOUS DRIP STARTED AT THE RATE OF 20 MCG/KG/MIN. KEPT MONITORED AND TITRATED ACCORDINGLY.
[2022-10-18] MEDS: OLANZapine 5 MG TAB PO SCH (09:20)
[2022-10-18] MEDS: SERTRALINE 50 MG TAB PO SCH (09:20)
[2022-10-18] MEDS: PANTOPRAZOLE 40 MG TABEC PO SCH (09:21)
[2022-10-18] MEDS: busPIRone 5 MG TAB PO SCH (09:21)
[2022-10-18] MEDS: VANCOMYCIN 750 MG in DEXTROSE 5% 250 ML IV SCH ×2 (09:22→20:30)
--- NOTE | 2022-10-18 10:46 | NUR ---
PICC LINE INSERTED ASEPTICALLY BY DEUCE OVER RIGHT UPPER ARM - PATENT AND INTACT. CXR DONE RIGHT AFTER TO CONFIRM PLACEMENT.
[2022-10-18 11:30] LABS: PROTHROMBIN TIME 12.6 secs (10.8-13.4)
[2022-10-18] MEDS: fentaNYL citrate 1 MG in NACL 0.9% 80 ML IV PRN (11:40)
--- NOTE | 2022-10-18 11:40 | NUR ---
FENTANYL DRIP STARTED AT 25 MCG/HR. KEPT CLOSELY MONITORED.
--- NOTE | 2022-10-18 12:00 | NUR ---
ABG RESULTS TEXT TO DR KAYE. NO CRITICAL VALUES WITH RESULTS . DECREASED PT FIO2 TO 40% PT IS SATING 98%. WILL CONTINUE TO MONITOR.
--- NOTE | 2022-10-18 13:00 | NUR ---
BEDSIDE THORANCENTESIS DONE BY DR. HICKS. OUTPUT OF 2L OF PLEURAL FLUID OBTAINED. PLEURAL FLUID SPECIMEN FORWARDED TO LAB FOR TESTING ORDERED. CXR DONE RIGHT AFTER FOR COMPARISON.
[2022-10-18] MEDS ORDERED: NOREPINEPHRINE 4 MG in DEXTROSE 5% 250 ML IV PRN (13:05)
--- NOTE | 2022-10-18 14:00 | NUR ---
SEEN AND EXAMINED BY DR. DEJESUS. UPDATED PT INFORMATION. NO NEW ORDERS MADE.
--- NOTE | 2022-10-18 14:00 | NUR ---
PT MOVING AND TRYING TO REMOVE ETT - BILATERAL SOFT WRIST RESTRAINTS APPLIED ORDERED. KEPT MONITORED AND SAFE.
--- NOTE | 2022-10-18 19:14 | NUR ---
ENDORSED PT TO BLENDING COORDINATOR NURSE SARA DIGGS FOR CONTINUITY OF CARE. ALL QUESTIONS ANSWERED.
--- NOTE | 2022-10-18 21:00 | NUR ---
TURNED AND REPOSITIONED PATIENT; ORAL CARE DONE WITH VAP KIT.
[2022-10-18] MEDS: NOREPINEPHRINE 8 MG in DEXTROSE 5% 250 ML IV PRN (21:48)
--- NOTE | 2022-10-18 21:54 | NUR ---
RECEIVED PATIENT ON BED ORALLY INTUBATED AND VENTILATED AT 30% FIO2; SEDATED CONTINUOUSLY WITH PROPOFOL DRIP AND FENTANYL DRIP VIA PICC LINE TO RIGHT UPPER ARM; PATENT AND INTACT. ABDOMEN IS SOFT, NON TENDER WITH HYPOACTIVE BOWEL SOUNDS. ON CONTINUOUS TUBE FEEDING GLUCERNA AT 60 ML/HR VIA G TUBE; TOLERATED WITH MINIMAL RESIDUAL. Addendum: 10/18/22 at 2157 by Linda Wyatt RN RECEIVED PATIENT AT 1919 INSTEAD OF 2156
[2022-10-18] MEDS ORDERED: NOREPINEPHRINE 4 MG/4 ML VIAL IV ONE (22:28)
--- NOTE | 2022-10-18 23:24 | NUR ---
RESTLESS AND AGITATED; PROPOFOL DRIP INCREASED PER PROTOCOL.
[2022-10-19] VITALS (31 sets, daily range): BP systolic 85–115; BP diastolic 25–70
[2022-10-19] MEDS: ACETYLCYSTEINE 20% (200 MG/ML) 200 MG/ML VIAL INH SCH ×4 (00:06→19:47)
[2022-10-19] MEDS: ALBUTEROL SULFATE/IPRATROPIU 3 ML SOL IH SCH ×4 (00:06→19:47)
[2022-10-19] MEDS: PROPOFOL 1000 MG/100 ML PREMIX 100 ML IV PRN ×6 (02:53→21:16)
--- NOTE | 2022-10-19 04:30 | NUR ---
MORNING BED BATH DONE; KEPT CLEAN DRY AND COMFORTABLE.
[2022-10-19] MEDS: fentaNYL citrate 1 MG in NACL 0.9% 80 ML IV PRN (05:49)
[2022-10-19] MEDS: PIPERACILLIN/TAZOBACTAM 3.375 GM in DEXTROSE 5% 50 ML IV SCH ×6 (05:51→23:16)
[2022-10-19 06:12] LABS: BASOPHILS % (AUTO) 0.2 % (0.0-2.0); EOSINOPHILS # (AUTO) 0.2 K/uL (0-0.4); EOSINOPHILS % (AUTO) 2.5 % (0.0-4.0); HEMATOCRIT 20.5 % (36-52); HEMOGLOBIN 7.1 g/dL (12.0-18.0); LYMPHOCYTES # (AUTO) 1.9 K/uL (2.0-11.5); LYMPHOCYTES % (AUTO) 21.8 % (20.5-51.1); MEAN CORPUSCULAR HEMOGLOBIN 34 pg (27-31); MEAN CORPUSCULAR HGB CONC 35 g/dL (33-37); MEAN CORPUSCULAR VOLUME 97.3 fL (80-94); MONOCYTES # (AUTO) 0.8 K/uL (0.8-1.0); NEUTROPHILS # (AUTO) 5.9 K/uL (1.8-7.7); NEUTROPHILS % (AUTO) 66.5 % (42.2-75.2); PLATELET COUNT (AUTO) 125 K/uL (140-450); RED BLOOD CELL COUNT(AUTO) 2.11 MIL/uL (4.20-6.10); RED CELL DISTRIBUTION WIDTH 16.6 % (11.6-13.7); WHITE BLOOD COUNT (AUTO) 8.8 K/uL (4.8-10.8)
[2022-10-19 06:23] LABS: ANION GAP 11.1 (8-16); CARBON DIOXIDE 28.9 mmol/L (21-32); CREATININE 0.8 mg/dL (0.6-1.3)
--- NOTE | 2022-10-19 07:15 | NUR ---
RECEIVED REPORT FROM SARA DIGGS. ETT TO VENTILATOR ACVC 35% FIO2, TIDAL VOLUME 450, RR 18, PEEP 5. PICC LINE PATENT ON RIGHT ARM WITH PROPOFOL INFUSING AT 60 MCG/KG/MIN, FENTANYL INFUSING AT 50 MCG/HR, LEVOPHED INFUSING AT 15 MCG/MIN, AND NS TKO 5 ML/HR. PT HAS GTUBE FEEDING WITH GLUCERNA INFUSING AT 60 ML/HR WITH 250 ML OF WATER Q 6 HOURS. NO SKIN BREAKDOWN NOTED. VS 103/63, HR 92, RR 18, SpO2 94%.
[2022-10-19] MEDS ORDERED: NOREPINEPHRINE 4 MG/4 ML VIAL IV ONE (07:20)
--- NOTE | 2022-10-19 07:43 | NUR ---
RECEIVED ON A FlowBelow Aero R860 VENTILATOR PLUGGED INTO RED OUTLET TOLERATING WELL WITHOUT ADVERSE REACTIONS NOTED TO AN ENDOTRACHEAL TUBE #7.5 SECURED AT 22cm TEETH/GUM LINE WITH AN ANCHOR FAST CUFF PRESSURE CHECKED NOTED AMBU BAG AT BEDSIDE RESTING COMFORTABLY GOOD CHEST RISE ENDOTRACHEAL SUCTION FOR MODERATE SCATTERED SEMI THICK TO HAZY BLOOD TINGE SECRETIONS AIRWAY PATENT Addendum: 10/19/22 at 1055 by Peter Cannon RT INCREASED FIO2 TO 35% TO KEEP SATURATION GREATER THAN 90% EXAMINATION GRADER TO TITRATE FIO2 TOLERATED
[2022-10-19] MEDS: OLANZapine 5 MG TAB PO SCH (08:12)
[2022-10-19] MEDS: busPIRone 5 MG TAB PO SCH (08:12)
[2022-10-19] MEDS: SERTRALINE 50 MG TAB PO SCH (08:12)
[2022-10-19] MEDS: VANCOMYCIN 750 MG in DEXTROSE 5% 250 ML IV SCH ×2 (08:14→21:13)
[2022-10-19] MEDS: NOREPINEPHRINE 8 MG in DEXTROSE 5% 250 ML IV PRN (08:19)
[2022-10-19] MEDS: PANTOPRAZOLE 40 MG INJ VIAL IVP SCH (08:25)
[2022-10-19] MEDS: POTASSIUM CHLORIDE 20% 40 MEQ/15 ML UDC GT PRN (08:26)
--- NOTE | 2022-10-19 09:00 | NUR ---
DR WOODSON ROUNDED AT PT BEDSIDE UPDATED ON PATIENT STATUS
--- NOTE | 2022-10-19 12:00 | NUR ---
DR HILL ROUNDED AT PT BEDSIDE PER MD ORDERS REPEAT H/H TOMORROW MORNING IF HGB LESS THAN 7 TRANSFUSE 1 UNIT PRBC.
--- NOTE | 2022-10-19 12:30 | NUR ---
INSERTED 16FR PITTS CATHETER WITH STERILE TECHNIQUE. IMMEDIATE RETURN OF CLEAR YELLOW URINE. PT TOLERATED WELL.
--- NOTE | 2022-10-19 13:05 | NUR ---
SEDATED RESTING WELL GOOD CHEST RISE ENDOTRACHEAL SUCTION FOR MODERATE THIN TO YELLOW/BLOOD TINGE SECRETIONS AIRWAY PATENT SPUTUM CULTURE OBTAINED FOR VAP PROTOCOL FORWARDED SAMPLE TO LAB; SATURATION 97% ON FIO2 OF 35% PEEP 5 cmH2O POST HHN THERAPY TITRATED FIO2 TO 30% HARVEY/GROUP ART SUPERVISOR NOTIFIED
--- NOTE | 2022-10-19 15:50 | NUR ---
SEDATED NO DISTRESS NOTED GOOD CHEST RISE
--- NOTE | 2022-10-19 16:30 | NUR ---
REVIEWED DR. JIMENEZ HILL [facility] 10/19 AT 1215; DAILY CPAP TRIAL AND SEDATION VACATION
--- NOTE | 2022-10-19 17:46 | NUR ---
STABLE SEDATED NO DISTRESS NOTED GOOD CHEST RISE AIRWAY PATENT
--- NOTE | 2022-10-19 19:20 | NUR ---
ENDORSED BEDSIDE REPORT TO TECHNICAL INFORMATION SPECIALIST SUPERVISOR BRINE, KYLEIGH, FOR CONTINUITY OF CARE. VSS.
[2022-10-20] VITALS (32 sets, daily range): BP systolic 83–108; BP diastolic 45–68
[2022-10-20] MEDS: ACETYLCYSTEINE 20% (200 MG/ML) 200 MG/ML VIAL INH SCH ×4 (00:21→19:13)
[2022-10-20] MEDS: ALBUTEROL SULFATE/IPRATROPIU 3 ML SOL IH SCH ×4 (00:21→19:13)
[2022-10-20] MEDS: PROPOFOL 1000 MG/100 ML PREMIX 100 ML IV PRN ×4 (03:50→17:53)
[2022-10-20] MEDS: PIPERACILLIN/TAZOBACTAM 3.375 GM in DEXTROSE 5% 50 ML IV SCH ×4 (06:02→23:11)
--- NOTE | 2022-10-20 06:19 | NUR ---
PT REMAINED AFEBRILE FOR THE SHIFT AND WAS ADEQUATELY SEDATED. ATTEMPTED TO WEAN DOWN ON LEVOPHED FROM 8MCG/MIN TO 6 BUT BP WENT BELOW 65 AND SO IT WAS BROUGHT BACK TO 8 MCG/MIN FOR THE REST OF THE SHIFT. SMALL BM WAS NOTED AND NO NEW BREAKDOWN NOTED UPON ASSESSMENT WHEN CLEANING
[2022-10-20 06:45] LABS: BASOPHILS % (AUTO) 0.3 % (0.0-2.0); EOSINOPHILS # (AUTO) 0.3 K/uL (0-0.4); LYMPHOCYTES # (AUTO) 2.3 K/uL (2.0-11.5); MEAN CORPUSCULAR HEMOGLOBIN 34 pg (27-31); MEAN CORPUSCULAR HGB CONC 35 g/dL (33-37); MEAN CORPUSCULAR VOLUME 96.6 fL (80-94); MONOCYTES # (AUTO) 0.5 K/uL (0.8-1.0); MONOCYTES % (AUTO) 4.6 % (1.7-9.3); NEUTROPHILS # (AUTO) 6.8 K/uL (1.8-7.7); NEUTROPHILS % (AUTO) 69.1 % (42.2-75.2); PLATELET COUNT (AUTO) 204 K/uL (140-450); RED BLOOD CELL COUNT(AUTO) 1.92 MIL/uL (4.20-6.10); RED CELL DISTRIBUTION WIDTH 16.4 % (11.6-13.7); WHITE BLOOD COUNT (AUTO) 9.8 K/uL (4.8-10.8)
[2022-10-20 06:57] LABS: ANION GAP 10.9 (8-16); CARBON DIOXIDE 29.1 mmol/L (21-32); CREATININE 0.6 mg/dL (0.6-1.3)
[2022-10-20 07:05] LABS: HEMATOCRIT 18.5 % (36-52); HEMOGLOBIN 6.5 g/dL (12.0-18.0)
--- NOTE | 2022-10-20 07:15 | NUR ---
RECEIVED REPORT FROM SARA ARIZMENDI. ETT TO VENTILATOR ACVC 30% FIO2, TIDAL VOLUME 450, RR 18, PEEP 5. PICC LINE PATENT ON RIGHT ARM WITH PROPOFOL INFUSING AT 64 MCG/KG/MIN, FENTANYL ON STANDBY, LEVOPHED INFUSING AT 15 MCG/MIN, AND NS TKO 5 ML/HR. PT HAS GTUBE FEEDING WITH GLUCERNA INFUSING AT 60 ML/HR WITH 250 ML OF WATER Q 6 HOURS. NO SKIN BREAKDOWN NOTED. BILATERAL SOFT RESTRAINTS AND MITTENS IN PLACE, NO S/SX OF INJURY. PITTS CATHETER TO GRAVITY DRAINING CLEAR YELLOW URINE. PT HAS GENERALIZED WEAKNESS. PATIENT IS STANDARD PRECAUTION. HOB 30 DEGREES FOR ASPIRATION PRECAUTIONS.
--- NOTE | 2022-10-20 07:45 | NUR ---
PLACED PT ON CPAP OF 8, AFTER 5 MIN, PT RR INCREASED TO 50. PT PLACED BACK ON PREVIOUS SETTINGS, RN NOTIFIED.
[2022-10-20] MEDS: PANTOPRAZOLE 40 MG INJ VIAL IVP SCH (08:35)
[2022-10-20] MEDS: busPIRone 5 MG TAB PO SCH (08:36)
[2022-10-20] MEDS: OLANZapine 5 MG TAB PO SCH (08:36)
[2022-10-20] MEDS: SERTRALINE 50 MG TAB PO SCH (08:37)
[2022-10-20] MEDS: VANCOMYCIN 750 MG in DEXTROSE 5% 250 ML IV SCH ×2 (08:38→20:39)
[2022-10-20] MEDS: DOCUSATE 100 MG/10 ML UDC GT PRN (08:59)
--- NOTE | 2022-10-20 10:50 | NUR ---
PLACED PT ON CPAP OF 8, PT ABLE TO FOLLOW COMMANDS. ALARMS SET AND AUDIBLE. RN NOTIFIED.
--- NOTE | 2022-10-20 10:53 | NUR ---
10/20/22 RD FOLLOW UP COMPLETED. PLEASE REFER TO NUTRITION ASSESSMENT UNDER CARE ACTIVITY FOR ESTIMATED NUTRITIONAL NEEDS. 1.RECOMMEND DECREASING GLUCERNA 1.2 RATE TO 50 ML/HR TOLERATED WITH FWF 250 Q6H OR PER MD. -THIS WILL PROVIDE 1200 ML VOLUME, 1440 KCAL (2119 KCAL WITH PROPOFOL), 72 GRAMS PROTEIN, AND 1968 ML FREE WATER, MEETING 100% OF ESTIMATED ENERGY NEEDS. -IF EXTUBATED RECOMMEND SWALLOW EVAL. 2. MONITOR GI SYMPTOMS AND GASTRIC RESIDUALS. 3. RD TO FOLLOW-UP IN 3-5 DAYS PATIENT IS MODERATE RISK. CIERRA LEACH RD
--- NOTE | 2022-10-20 11:54 | NUR ---
DECREASED GLUCERNA TUBE FEEDING RATE FROM 60 ML/HR TO 50 ML/HR PER CAR WASH ATTENDANT RECOMMENDATIONS. FREE WATER FLUSH REMAINS 250 ML Q6H.
[2022-10-20] MEDS ORDERED: DEXMEDETOMIDINE HCL 400 MCG in NACL 0.9% 96 ML IV SCH (12:50)
[2022-10-20] MEDS: DEXMEDETOMIDINE HCL 400 MCG in NACL 0.9% 96 ML IV PRN ×2 (13:25→21:26)
[2022-10-20] MEDS: NOREPINEPHRINE 8 MG in DEXTROSE 5% 250 ML IV PRN (15:25)
--- NOTE | 2022-10-20 15:35 | NUR ---
UNIT PRBC COMPLETED. NO S/SX TRANSFUSION REACTION. TEMP 99.8
[2022-10-20 17:30] LABS: HEMATOCRIT 22.4 % (36-52); HEMOGLOBIN 7.9 g/dL (12.0-18.0)
--- NOTE | 2022-10-20 19:02 | NUR ---
ENDORSED BEDSIDE REPORT TO COLOR CHECKER PROGRAMMER BUSINESS, ALBINA, FOR CONTINUITY OF CARE. VSS
--- NOTE | 2022-10-20 19:30 | NUR ---
[id number] ENDORSEMENT REPORT WAS GIVEN BY Suzette RUIZ [facility]
--- NOTE | 2022-10-20 22:41 | NUR ---
AT 1924- PT IS ASLEEP AND TITRATED DOWN THE PROPOFOL TO 55MCG/KG / MIN
--- NOTE | 2022-10-20 22:45 | NUR ---
AT 2034 THE BPS WAS81 , SO LEVOPHED DRIP UP TO 10MCG/MIN
[2022-10-20] MEDS: fentaNYL citrate 1 MG in NACL 0.9% 80 ML IV PRN (23:06)
--- NOTE | 2022-10-20 23:55 | NUR ---
AT 2200- SUCTIONED ENDOTRACHEally and orally with medium thick whitish secretions and oral care done
[2022-10-21] VITALS (31 sets, daily range): BP systolic 45–130; BP diastolic 22–71
[2022-10-21] MEDS: ACETAMINOPHEN 325 MG TAB PO PRN ×3 (00:34→18:32)
[2022-10-21] MEDS: ALBUTEROL SULFATE/IPRATROPIU 3 ML SOL IH SCH ×4 (01:01→19:20)
[2022-10-21] MEDS: ACETYLCYSTEINE 20% (200 MG/ML) 200 MG/ML VIAL INH SCH ×4 (01:02→19:20)
--- NOTE | 2022-10-21 01:02 | NUR ---
at 0030 skin is very warm to, touch-temp rechecked-101,8. Tylenol 650 mg given via GT and repositioned and icepacks applied over groins and under axillas
--- NOTE | 2022-10-21 01:14 | NUR ---
0105- RT reducd )2 to 30% and saturTION IS 97%
--- NOTE | 2022-10-21 01:33 | NUR ---
RESTLESS AND AGITATED- INCREASEDTHE FENTANYL TO 80 MCG / HR
--- NOTE | 2022-10-21 01:50 | NUR ---
0150- QUIETED DOWN AND LOOKS MORE COMFORTABLE
--- NOTE | 2022-10-21 02:41 | NUR ---
0230- REMAINS CALM AND SLEEPING
[2022-10-21] MEDS ORDERED: NOREPINEPHRINE 4 MG/4 ML VIAL IV ONE (04:23)
[2022-10-21 05:27] LABS: BASOPHILS % (AUTO) 0.2 % (0.0-2.0); MEAN CORPUSCULAR HEMOGLOBIN 32 pg (27-31); MONOCYTES # (AUTO) 0.6 K/uL (0.8-1.0)
[2022-10-21 05:31] LABS: EOSINOPHILS # (AUTO) 0.2 K/uL (0-0.4); EOSINOPHILS % (AUTO) 1.6 % (0.0-4.0); HEMATOCRIT 22.5 % (36-52); HEMOGLOBIN 7.7 g/dL (12.0-18.0); LYMPHOCYTES # (AUTO) 1.7 K/uL (2.0-11.5); LYMPHOCYTES % (AUTO) 13.3 % (20.5-51.1); MEAN CORPUSCULAR HGB CONC 34 g/dL (33-37); MEAN CORPUSCULAR VOLUME 92.9 fL (80-94); MONOCYTES % (AUTO) 4.6 % (1.7-9.3); NEUTROPHILS % (AUTO) 80.3 % (42.2-75.2); PLATELET COUNT (AUTO) 417 K/uL (140-450); RED BLOOD CELL COUNT(AUTO) 2.42 MIL/uL (4.20-6.10); RED CELL DISTRIBUTION WIDTH 18.9 % (11.6-13.7); WHITE BLOOD COUNT (AUTO) 12.4 K/uL (4.8-10.8)
[2022-10-21] MEDS: PIPERACILLIN/TAZOBACTAM 3.375 GM in DEXTROSE 5% 50 ML IV SCH ×3 (05:39→17:44)
[2022-10-21] MEDS ORDERED: DEXMEDETOMIDINE HCL 100 MCG/ML 2 ML VIAL IV ONE (05:39)
[2022-10-21 05:41] LABS: ANION GAP 10.6 (8-16); CARBON DIOXIDE 29.2 mmol/L (21-32); CREATININE 0.6 mg/dL (0.6-1.3); POTASSIUM 3.8 mmol/L (3.5-5.1)
--- NOTE | 2022-10-21 07:15 | NUR ---
RECEIVED REPORT FROM CUPROUS CHLORIDE HELPER NURSE SARA MONTEMAYOR. ALL CARES ASSUMED. PT SEEN AWAKE, RESPONSIVE AND ORIENTED X3. PT ON SEMI-MARIO'S POSITION. WITH PICC LINE OVER RIGHT UPPER ARM TO NORMAL SALINBE AT 100 CC/HR -PATENT AND INTACT. WITH COLOSTOMY IN PLACE, STOMA IN NORMAL CONDITION-NO OUTPUT NOTED. WITH [address] OVER RIGHT LOWER QUADRANT - IN NEGATIVE PRESSURE WITH NO DRAINAGE NOTED. WITH PITTS CATHETER ATTACHED TO UROBAG- DRAINING WELL TO YELLOW-COLORED URINE. WITH SAFETY PRECAUTIONS IN PLACE. CALL LIGHT WITHIN REACH. CURTAINS CLOSED REQUESTED BY PT. KEPT MONITORED. Addendum: 10/21/22 at 1035 by KEI WHITLEY RN WRONG PT.
--- NOTE | 2022-10-21 07:15 | NUR ---
RECEIVED REPORT FROM RADIOLOGY CT TECHNOLOGIST NURSE SARA MONTEMAYOR. PT RECEIVED WITH SPONTANEOUS EYE OPENING, ETT TO VENT, AC VC FIO2 30% TV-450ML RATE-18CPM PEEP-5. NO SIGNS AND SYMPTOMS OF RESPIRATORY DISTRESS. WITH PICC LINE OVER RIGHT UPPER LINE - INTACT AND PATENT. WITH ATTACHED CONTINUOUS DRIP OF NORMAL SALINE AT TKO WITH PROPOFOL AT 55 MCG/KG/MIN, FENTANYL AT 25MCG/HR, PRECEDEX AT , LEVOPHED AT 18 MCG.MIN Addendum: 10/21/22 at 1042 by KEI WHITLEY RN RECEIVED REPORT FROM RADIOLOGY CT TECHNOLOGIST NURSE ALBINA RN. ALL CARES ASSUMED. PT RECEIVED WITH SPONTANEOUS EYE OPENING, ETT TO VENT, AC VC FIO2 30% TV-450ML RATE-18CPM PEEP-5. NO SIGNS AND SYMPTOMS OF RESPIRATORY DISTRESS. ON SEMI-MARIO'S POSITION. WITH PICC LINE OVER RIGHT UPPER LINE - INTACT AND PATENT. WITH ATTACHED CONTINUOUS DRIP OF NORMAL SALINE AT TKO WITH PROPOFOL AT 15 MCG/KG/MIN, FENTANYL AT 65MCG/HR, PRECEDEX AT 1 MCG/KG/HR, LEVOPHED AT 20 MCG/MIN - ALL DRIPS INFUSING WELL. WITH G-TUBE NOTED WITH ONGOING FEEDING OF GLUCERNA 1.2 AT 50ML/ HR FEEDING RATE WITH 50ML FWF Q6H - TOLERATED WELL. WITH PITTS CATHETER ATTACHED TO UROBAG - DRAINING WELL TO GREENISH COLORED URINE. WITH 2 POINT MITTENS AND SOFT WRIST RESTRAINTS. WITH SAFETY PRECAUTIONS IN PLACED. KEPT MONITORED.
--- NOTE | 2022-10-21 07:30 | NUR ---
0400-COMPLETE BED BATH ANDLINEN CHANGED DONE
--- NOTE | 2022-10-21 07:31 | NUR ---
0520- bp WAS LOW AT 40/22 BUT NOT SURE IF POSITIONAL SO DRIPS WERE ALL ADJUSTED AND bP CUFF PLACEMENT WAS CHANGED THREE TIMETO DIFFERENT LOCATIONS
--- NOTE | 2022-10-21 07:50 | NUR ---
TEMP CHECKED- 100.4 F. TEPID SPONGE BATH DONE AND KEPT COOL. TYLENOL TAB GIVEN VIA G-TUBE. TEMP MONITORED CLOSELY.
[2022-10-21 08:04] LABS: GLUCOSE,BODY FLUID 2 mg/dL
[2022-10-21] MEDS: VANCOMYCIN 750 MG in DEXTROSE 5% 250 ML IV SCH ×2 (08:30→20:24)
[2022-10-21] MEDS: PANTOPRAZOLE 40 MG INJ VIAL IVP SCH (08:31)
[2022-10-21] MEDS: SERTRALINE 50 MG TAB PO SCH (08:32)
[2022-10-21] MEDS: busPIRone 5 MG TAB PO SCH (08:32)
[2022-10-21] MEDS: OLANZapine 5 MG TAB PO SCH (08:32)
--- NOTE | 2022-10-21 08:42 | NUR ---
SEEN AND EXAMINED BY DR. DO. UPDATED PT INFORMATION. NO NEW ORDERS.
--- NOTE | 2022-10-21 09:10 | NUR ---
SEEN AND EXAMINED BY RT AND CIPAP TRIAL STARTED. MONITORED PT CLOSELY FOR ANY SIGNS OF RESPIRATORY DISTRESS.
[2022-10-21] MEDS: DOCUSATE 100 MG/10 ML UDC GT PRN (09:27)
--- NOTE | 2022-10-21 09:27 | NUR ---
PT STILL WITHOUT BM - COLACE GIVEN VIA G-TUBE. MONITORED FOR BOWEL MOVEMENT.
--- NOTE | 2022-10-21 10:02 | NUR ---
SEEN AND EXAMINED BY DR. HILL. UPDATED PT INFORMATION. WITH ORDERS MADE- CARRIED OUT. Addendum: 10/21/22 at 1504 by KEI WHITLEY RN DOUBLE ENTRY
--- NOTE | 2022-10-21 10:02 | NUR ---
SEEN AND EXAMINED BY DR. HILL. UPDATED PT INFORMATION. WITH NEW ORDERS MADE- ACKNOWLEDGED.
--- NOTE | 2022-10-21 10:25 | NUR ---
CXR DONE AT BEDSIDE BY RADIOLOGY.
[2022-10-21] MEDS ORDERED: FUROSEMIDE 40 MG/4 ML VIAL IVP SCH (10:30)
--- NOTE | 2022-10-21 10:54 | NUR ---
SEEN AND EXAMINED BY WOUND CARE NURSEROBERTO. UPDATED PT INFORMATION.
--- NOTE | 2022-10-21 10:57 | NUR ---
LASIX IV PUSH GIVEN ORDERED.
--- NOTE | 2022-10-21 11:12 | NUR ---
SEEN AND EXAMINED BY ERIK. UPDATED PT INFORMATION. WITH ORDER TO D/C BUSPIRONE TAB - NOTED.
[2022-10-21] MEDS: DEXMEDETOMIDINE HCL 400 MCG in NACL 0.9% 96 ML IV PRN ×2 (12:42→18:23)
--- NOTE | 2022-10-21 13:10 | NUR ---
PT PLACED ON 4HR OF CPAP PER MD ALLEN. PT TOLERATED 4 HOURS, RN AND MD NOTIFIED.
[2022-10-21] MEDS: NOREPINEPHRINE 8 MG in DEXTROSE 5% 250 ML IV PRN (14:47)
[2022-10-21] MEDS: PROPOFOL 1000 MG/100 ML PREMIX 100 ML IV PRN (16:43)
[2022-10-21] MEDS: fentaNYL citrate 1 MG in NACL 0.9% 80 ML IV PRN (18:26)
--- NOTE | 2022-10-21 19:20 | NUR ---
ENDORSED TO HYDROELECTRIC POWERPLANT SUPERVISOR NURSE SARA AHUJA FOR CONTINUITY OF CARE. ALL QUESTIONS ANSWERED.
--- NOTE | 2022-10-21 19:20 | NUR ---
TRANSFER OF CARE FROM DAY SHIFT, REPORT RECEIVED FROM SARA ROLDAN. PATIENT RECEIVED PARTIALLY SEDATED, ETT TO VENT. CURRENT VENT SETTINGS: AC/VC, FIO2 = 30%, VT = 450, R = 18, PEEP = 5 PATIENT IS LYING IN BED ON LEFT SIDE. PATIENT HAS RIGHT UPPER ARM PICC LINE WITH THE FOLLOWING MEDICATIONS INFUSING: PROPOFOL 1GM AT 15MCG/KG/MIN, PRECEDEX 4OOMCG AT 1.2MCG/KG/HR, FENTANYL 1MG AT 100MCG/HR, LEVOPHED 8MG AT 12MCG/MIN, AND NORMAL SALINE AT 5ML/HR. VITAL SIGNS AT START OF SHIFT ARE FOLLOWS: T = 100.3F, HR =82, R = 18 O2 SAT = 97%, AND BP = 123/68. PATIENT WITH G-TUBE AND IS RECEIVING ENTERAL NUTRITION, GLUCERNA 1.2 RUNNING AT 50ML/HR. WILL CONTINUE TO MONITOR PATIENT FOR ANY CHANGE IN CONDITION AND NOTIFY MD INDICATED.
--- NOTE | 2022-10-21 22:00 | NUR ---
RT AT BEDSIDE, NO CHANGES MADE TO VENT SETTINGS
--- NOTE | 2022-10-21 22:15 | NUR ---
PATIENT APPEARED TO BE SHIVERING WHILE LYING IN BED. CHECKED PATIENT TEMP VIA AXILLARY THERMOMETER; TEMP READING = 103.6F. LAST TYLENOL DOSAGE AT 1832 AND IS DUE EVERY 6 HOURS PER MD ORDERS PATIENT GOWN REMOVED AND COOLING MEASURES INITIATED. WILL CONTINUE TO MONITOR PATIENT FOR ANY ADDITIONAL CHANGE IN CONDITION
[2022-10-22] VITALS (28 sets, daily range): BP systolic 91–147; BP diastolic 41–76
[2022-10-22] MEDS: PIPERACILLIN/TAZOBACTAM 3.375 GM in DEXTROSE 5% 50 ML IV SCH ×4 (00:11→17:54)
[2022-10-22] MEDS: DEXMEDETOMIDINE HCL 400 MCG in NACL 0.9% 96 ML IV PRN ×5 (00:12→22:07)
[2022-10-22] MEDS: NOREPINEPHRINE 8 MG in DEXTROSE 5% 250 ML IV PRN ×2 (00:13→04:15)
[2022-10-22] MEDS: ACETYLCYSTEINE 20% (200 MG/ML) 200 MG/ML VIAL INH SCH ×4 (01:27→20:04)
[2022-10-22] MEDS: ALBUTEROL SULFATE/IPRATROPIU 3 ML SOL IH SCH ×4 (01:27→20:04)
[2022-10-22] MEDS: fentaNYL citrate 1 MG in NACL 0.9% 80 ML IV PRN ×2 (04:20→17:35)
[2022-10-22] MEDS: PROPOFOL 1000 MG/100 ML PREMIX 100 ML IV PRN ×2 (04:35→19:16)
--- NOTE | 2022-10-22 07:23 | NUR ---
TRANSFER OF CARE TO DAY SHIFT, REPORT ENDORSED TO SARA ARIZMENDI.
--- NOTE | 2022-10-22 07:25 | NUR ---
RECEIVED FROM TUBE TURNER NURSELEIGHA RN. ALL CARES ASSUMED. RECEIVED PT ASLEEP, UNDER SEDATION. WITH ETT IN PLACE TO VENT WITH FIO2 OF 30% TV 450ML RATE OF 18 AND PEEP OF 5 - NOT IN RESP DISTRESS WITH SPO2 OF 98%. WITH GTUBE IN PLACE WITH TUBE FEEDING OF GLUCERNA 1.2 AT 50 ML/HR WITH 50 ML FWF Q6H. WITH PICC LINE OVER RIGHT UPPER ARM WITH ONGOING DRIPS OF NORMAL SALINE AT TKO, LEVOPHED AT 12 MCG/MIN, PROPOFOL 15 MCG/KG/MIN, FENTANYL 100MCG/HR & PRECEDEX 1,2 MCG/KG/MIN. WITH PITTS CATHETER IN PLACE FLOWING TO GRAVITY. WITH BILATERAL SOFT WRIST RESTRAINTS. WITH SCD IN PLACE. SAFETY PRECAUTIONS OBSERVED AND MAINTAINED.
[2022-10-22] MEDS: PANTOPRAZOLE 40 MG INJ VIAL IVP SCH (08:13)
[2022-10-22] MEDS: VANCOMYCIN 750 MG in DEXTROSE 5% 250 ML IV SCH (08:13)
[2022-10-22] MEDS: OLANZapine 5 MG TAB PO SCH (08:14)
[2022-10-22] MEDS: SERTRALINE 50 MG TAB PO SCH (08:14)
[2022-10-22 08:19] LABS: BASOPHILS # (AUTO) 0.1 K/uL (0.00-0.22); BASOPHILS % (AUTO) 0.4 % (0.0-2.0); EOSINOPHILS # (AUTO) 0.2 K/uL (0-0.4); EOSINOPHILS % (AUTO) 1.1 % (0.0-4.0); HEMATOCRIT 22.8 % (36-52); HEMOGLOBIN 7.5 g/dL (12.0-18.0); LYMPHOCYTES # (AUTO) 1.6 K/uL (2.0-11.5); MEAN CORPUSCULAR HEMOGLOBIN 31 pg (27-31); MEAN CORPUSCULAR HGB CONC 33 g/dL (33-37); MEAN CORPUSCULAR VOLUME 93.5 fL (80-94); MONOCYTES # (AUTO) 0.9 K/uL (0.8-1.0); MONOCYTES % (AUTO) 6.3 % (1.7-9.3); NEUTROPHILS % (AUTO) 81.2 % (42.2-75.2); PLATELET COUNT (AUTO) 598 K/uL (140-450); RED BLOOD CELL COUNT(AUTO) 2.44 MIL/uL (4.20-6.10); RED CELL DISTRIBUTION WIDTH 18.2 % (11.6-13.7); WHITE BLOOD COUNT (AUTO) 14.8 K/uL (4.8-10.8)
[2022-10-22 08:57] LABS: ANION GAP 11.1 (8-16); CARBON DIOXIDE 28.5 mmol/L (21-32); CREATININE 0.6 mg/dL (0.6-1.3); POTASSIUM 3.6 mmol/L (3.5-5.1)
--- NOTE | 2022-10-22 08:57 | NUR ---
SEEN AND VISITED BY DR. VALENCIA. UPDATED PT INFORMATION.
[2022-10-22] MEDS ORDERED: POTASSIUM CHLORIDE 10 MEQ TABER PO SCH (11:20)
[2022-10-22] MEDS: POTASSIUM CHLORIDE 20% 40 MEQ/15 ML UDC GT PRN (13:40)
[2022-10-22] MEDS: ACETAMINOPHEN 325 MG TAB PO PRN (13:41)
--- NOTE | 2022-10-22 14:30 | NUR ---
STARTED ON CPAP TRIAL BY RT. VS STABLE. NOT IN DISTRESS
--- NOTE | 2022-10-22 16:00 | NUR ---
BM NOTED 2X - MODERATE AMOUNT. NORMAL AND SOFT. Addendum: 10/22/22 at 1929 by KEI WHITLEY RN CLEANED PT AND KEPT DRY AND COMFORTABLE..
[2022-10-22] MEDS: FUROSEMIDE 20 MG/2 ML VIAL IVP SCH (17:48)
--- NOTE | 2022-10-22 19:15 | NUR ---
ENDORSEMENT OF CARE GIVEN TO SARA AHUJA. ALL QUESTIONS ANSWERED.
--- NOTE | 2022-10-22 19:20 | NUR ---
TRANSFER OF CARE FROM DAY SHIFT, REPORT RECEIVED FROM SARA ROLDAN. PATIENT RECEIVED PARTIALLY SEDATED, ETT TO VENT. CURRENT VENT SETTINGS: AC/VC, FIO2 = 30%, VT = 450, R = 18, PEEP = 5 PATIENT IS LYING IN BED ON LEFT SIDE. PATIENT HAS RIGHT UPPER ARM PICC LINE WITH THE FOLLOWING MEDICATIONS INFUSING: PROPOFOL 1GM AT 15MCG/KG/MIN, PRECEDEX 4OOMCG AT 1.2MCG/KG/HR, FENTANYL 1MG AT 50MCG/HR, LEVOPHED 8MG AT 8MCG/MIN, AND NORMAL SALINE AT 5ML/HR. VITAL SIGNS AT START OF SHIFT ARE FOLLOWS: T = 98.7F, HR =84, R = 18 O2 SAT = 99%, AND BP = 107/55. PATIENT WITH G-TUBE AND IS RECEIVING ENTERAL NUTRITION, GLUCERNA 1.2 RUNNING AT 50ML/HR. WILL CONTINUE TO MONITOR PATIENT FOR ANY CHANGE IN CONDITION AND NOTIFY MD INDICATED.
[2022-10-22] MEDS: VANCOMYCIN 1,000 MG in DEXTROSE 5% 250 ML IV SCH (20:41)
[2022-10-23] VITALS (33 sets, daily range): BP systolic 88–128; BP diastolic 42–72
[2022-10-23] MEDS: PIPERACILLIN/TAZOBACTAM 3.375 GM in DEXTROSE 5% 50 ML IV SCH ×4 (00:12→17:46)
[2022-10-23] MEDS: ACETAMINOPHEN 325 MG TAB PO PRN ×2 (00:13→20:34)
[2022-10-23] MEDS: DEXMEDETOMIDINE HCL 400 MCG in NACL 0.9% 96 ML IV PRN (04:14)
--- NOTE | 2022-10-23 07:44 | NUR ---
[facility]
[2022-10-23] MEDS: ALBUTEROL SULFATE/IPRATROPIU 3 ML SOL IH SCH ×3 (07:46→20:13)
[2022-10-23] MEDS: ACETYLCYSTEINE 20% (200 MG/ML) 200 MG/ML VIAL INH SCH ×3 (07:47→20:12)
--- NOTE | 2022-10-23 07:47 | NUR ---
RECEIVED ON A [employer] R860 VENTILATOR PLUGGED INTO RED OUTLET TOLERATING WELL WITHOUT ADVERSE REACTIONS NOTED TO AN ENDOTRACHEAL TUBE SECURED AT 22cm TEETH/GUM LINE WITH AN ANCHOR FAST CUFF PRESSURE CHECKED NOTE AMBU BAG AT BEDSIDE SEDATED BUT AWAKE EQUAL CHEST RISE ENDOTRACHEAL SUCTION FOR MINUTE THIN YELLOW SECRETIONS AIRWAY PATENT
[2022-10-23] MEDS: NOREPINEPHRINE 8 MG in DEXTROSE 5% 250 ML IV PRN (08:33)
[2022-10-23] MEDS: FUROSEMIDE 20 MG/2 ML VIAL IVP SCH ×2 (09:00→17:40)
[2022-10-23] MEDS: OLANZapine 5 MG TAB PO SCH (09:00)
[2022-10-23] MEDS: SERTRALINE 50 MG TAB PO SCH (09:00)
[2022-10-23] MEDS: VANCOMYCIN 1,000 MG in DEXTROSE 5% 250 ML IV SCH ×2 (09:00→21:13)
[2022-10-23] MEDS: PANTOPRAZOLE 40 MG INJ VIAL IVP SCH (09:00)
--- NOTE | 2022-10-23 09:38 | NUR ---
SEDATED STABLE LOC AWAKE GOOD CHEST RISE AND AERATION THROUGHOUT BILATERAL LUNG TORRES AIRWAY PATENT RN'S AT BEDSIDE FOR PHYSICAL HYGIENE AND REPOSITION; PROGRAM MANAGEMENT INTERN TO ATTEMPT CPAP TRIAL AT A LATER TIME
--- NOTE | 2022-10-23 09:58 | NUR ---
PLACED ON CPAP TRIAL NOTED TOLERATING WELL WITHOUT PULMONARY DISTRESS NOTED GOO D CHEST RISE AIRWAY PATENT RN NOTIFIED
[2022-10-23] MEDS: PROPOFOL 1000 MG/100 ML PREMIX 100 ML IV PRN (10:19)
--- NOTE | 2022-10-23 11:25 | NUR ---
NO DISTRESS NOTED TOLERATING CPAP TRIAL NOTED GOOD CHEST RISE AIRWAY PATENT
--- NOTE | 2022-10-23 13:57 | NUR ---
SEDATED STABLE TOLERATING CPAP TRIAL NOTED GOOD CHEST RISE AIRWAY PATENT Addendum: 10/23/22 at 1507 by Peter Cannon RT ENDOTRACHEAL SUCTION FOR SMALL YELLOW/HAZY SECRETIONS
[2022-10-23 15:46] LABS: BASOPHILS # (AUTO) 0.1 K/uL (0.00-0.22); BASOPHILS % (AUTO) 0.7 % (0.0-2.0); EOSINOPHILS # (AUTO) 0.1 K/uL (0-0.4); HEMATOCRIT 21.6 % (36-52); HEMOGLOBIN 7.3 g/dL (12.0-18.0); LYMPHOCYTES # (AUTO) 1.6 K/uL (2.0-11.5); LYMPHOCYTES % (AUTO) 12.2 % (20.5-51.1); MEAN CORPUSCULAR HEMOGLOBIN 31 pg (27-31); MEAN CORPUSCULAR HGB CONC 34 g/dL (33-37); MEAN CORPUSCULAR VOLUME 91.8 fL (80-94); MONOCYTES # (AUTO) 1.1 K/uL (0.8-1.0); NEUTROPHILS # (AUTO) 10.5 K/uL (1.8-7.7); NEUTROPHILS % (AUTO) 78.1 % (42.2-75.2); PLATELET COUNT (AUTO) 751 K/uL (140-450); RED BLOOD CELL COUNT(AUTO) 2.35 MIL/uL (4.20-6.10); RED CELL DISTRIBUTION WIDTH 17.7 % (11.6-13.7); WHITE BLOOD COUNT (AUTO) 13.4 K/uL (4.8-10.8)
--- NOTE | 2022-10-23 15:55 | NUR ---
10/23/22 RD FOLLOW UP COMPLETED PLEASE REFER TO NUTRITION ASSESSMENT UNDER CARE ACTIVITY FOR ESTIMATED NUTRITIONAL NEEDS. 1. RECOMMEND SWITCHING TO JEVITY 1.2 AT 60 ML/HR WITH FWF 200ML Q6H DUE TO HIGH GASTRO RESIDUALS AND CONSTIPATION. -RECOMMEND PROSOURCE BID FOR NUTRITION SUPPORT -START AT 20ML/HR AND INCREASE BY 20ML Q4H TOLERATED UNTIL THE GOAL IS REACHED -WITH PROPOFOL @ 5.145ML/HR AND PROSOURCE BID, PATIENT WILL RECEIVE 1440ML TOTAL VOLUME, 2026KCAL AND 96GM PROTEIN, MEETING 100% OF ESTIMATED NUTRITIONAL NEEDS 2. MONITOR GI SYMPTOMS AND GASTRIC RESIDUALS. 3. RD TO FOLLOW-UP IN 2-3 DAYS PATIENT IS HIGH RISK. KATHLEEN DOUGLAS RD
[2022-10-23 16:06] LABS: ALBUMIN 1.3 g/dL (3.4-5.0); ANION GAP 13.2 (8-16); CREATININE 0.7 mg/dL (0.6-1.3); POTASSIUM 3.2 mmol/L (3.5-5.1); TOTAL BILIRUBIN 0.5 mg/dL (0.0-1.0)
--- NOTE | 2022-10-23 16:35 | NUR ---
PT, RESTLESS MOST OF THE TIME, STARTED ON PRECEDEX.
--- NOTE | 2022-10-23 17:22 | NUR ---
STABLE SEDATED GOOD CHEST RISE PLACED BACK ON AC MODE TO REDT PATIENT AT THIS TIME; TOLERATED CPAP TRIAL X 8.5 HOURS; BENCH ASSEMBLER ELECTRICAL'S NOTIFIED
[2022-10-23] MEDS ORDERED: DEXMEDETOMIDINE HCL 100 MCG/ML 2 ML VIAL IV ONE (20:27)
[2022-10-23] MEDS ORDERED: NOREPINEPHRINE 4 MG/4 ML VIAL IV ONE (21:21)
--- NOTE | 2022-10-23 22:26 | NUR ---
1900- recd. endorsement from KYLEIGH RUIZ
--- NOTE | 2022-10-23 22:28 | NUR ---
1999-REPOSITIONEDTO HIS LEFT SIDE .ORAL CARE DONE
--- NOTE | 2022-10-23 22:30 | NUR ---
1930- AGITATED AND MOVING RESTLESSLY DESPITE ALL SEDATION DRIPS HE IS RECEIVING, UP THE FENTANYL TO 65 MCG/HR AND PROFOPOL UP TO 20 MCG/KG/MIN
--- NOTE | 2022-10-23 22:40 | NUR ---
2200-- QUIET THIS TIME AND SLEEPING. HOB UP 45 DEGREE.
--- NOTE | 2022-10-23 22:41 | NUR ---
2100- CHANGED THE FEEDING TO JEVITY AND STARTED TO 20 ML/HR - [id number]/HR
--- NOTE | 2022-10-23 23:18 | NUR ---
2033- TEMP IS 100.3 AND SKIN IS WARM TO TOUCH , HENCE TYLENOL 650 MG VIA GT WAS GIVEN
--- NOTE | 2022-10-23 23:20 | NUR ---
1999 PT. REFUSED TO BE REPOSITIONED WHEN SHE IS SLEEPING BUT EXPLAINED TO HER THAT REPOSITIONING IS VERY IMPORTANT TO PREVENT FURTHER SKIN BREAKDOWN Addendum: 10/24/22 at 0142 by Agency Paul RUIZ RN ABOVE 1999 NOTES ARE NOT FOR THIS PATIENT, DISREGARD
[2022-10-24] VITALS (33 sets, daily range): BP systolic 83–128; BP diastolic 36–76
[2022-10-24] MEDS: PIPERACILLIN/TAZOBACTAM 3.375 GM in DEXTROSE 5% 50 ML IV SCH ×4 (00:02→18:01)
--- NOTE | 2022-10-24 01:42 | NUR ---
2200 REPOITIONED TO HIS RIGHT SIDE
--- NOTE | 2022-10-24 01:43 | NUR ---
0000- TEMP DOWN TO 99 FARENHEIT , REPOSITIONED TO LEFT SIDE .
[2022-10-24] MEDS: ALBUTEROL SULFATE/IPRATROPIU 3 ML SOL IH SCH ×4 (02:08→18:58)
[2022-10-24] MEDS: ACETYLCYSTEINE 20% (200 MG/ML) 200 MG/ML VIAL INH SCH ×4 (02:08→18:58)
[2022-10-24] MEDS ORDERED: DEXMEDETOMIDINE HCL 100 MCG/ML 2 ML VIAL IV ONE (02:13)
[2022-10-24] MEDS: DEXMEDETOMIDINE HCL 400 MCG in NACL 0.9% 96 ML IV PRN ×4 (02:35→19:50)
[2022-10-24] MEDS: PROPOFOL 1000 MG/100 ML PREMIX 100 ML IV PRN ×2 (03:08→19:01)
--- NOTE | 2022-10-24 07:36 | NUR ---
0200 repositioned and oral care given
--- NOTE | 2022-10-24 07:37 | NUR ---
0400-complete bed bath done and complete linen changed done
--- NOTE | 2022-10-24 07:38 | NUR ---
0600- pt remains quiet and ON SR. Oral care given
--- NOTE | 2022-10-24 07:39 | NUR ---
0700- Endorsed to Frank PARLIAMENTARY COUNSEL nurse day shift
[2022-10-24] MEDS: VANCOMYCIN 1,000 MG in DEXTROSE 5% 250 ML IV SCH ×2 (09:00→21:17)
[2022-10-24 09:35] LABS: ANION GAP 9.8 (8-16); CREATININE 0.6 mg/dL (0.6-1.3)
[2022-10-24 09:36] LABS: POTASSIUM 2.8 mmol/L (3.5-5.1)
[2022-10-24] MEDS: FUROSEMIDE 20 MG/2 ML VIAL IVP SCH ×2 (10:25→18:01)
[2022-10-24] MEDS: PANTOPRAZOLE 40 MG INJ VIAL IVP SCH (10:25)
[2022-10-24] MEDS: SERTRALINE 50 MG TAB PO SCH (10:25)
[2022-10-24] MEDS: OLANZapine 5 MG TAB PO SCH (10:26)
[2022-10-24] MEDS: fentaNYL citrate 1 MG in NACL 0.9% 80 ML IV PRN ×3 (10:47→22:36)
[2022-10-24] MEDS ORDERED: VANCOMYCIN PER PHARMACY MC PRN (10:55)
[2022-10-24] MEDS ORDERED: KCL 20 MEQ IN 100 mL PREMIX 200 ML IV SCH (11:30)
[2022-10-24] MEDS ORDERED: fentaNYL citrate 0.05 MG/ML VIAL IVP SCH (13:35)
[2022-10-24] MEDS ORDERED: ALBUMIN HUMAN 25% 100 ML IV SCH (13:39)
[2022-10-24] MEDS: LORazepam 2 MG/ML VIAL IVP PRN (14:02)
--- NOTE | 2022-10-24 18:59 | NUR ---
RECEIVED REPORT FROM AM SHIFT. PATIENT WAS SEEN AND ASSESSED. PATIENT IS SEDATED AND INTUBATED WITH ETT SIZE 7.5 AND SECURED WITH A BITING BLOCK ANCHOR-FAST 22cm @ TEETH. PATIENT IS ON VENTILATOR SUPPORT. VENT SETTINGS: AC/VC RR 18, VT 450, PEEP 5, FiO2 24% WITH SPO2 OF 98%. VENTILATOR PLUGGED IN RED OUTLET. VENTILATOR ALARMS SET APPROPRIATELY AND AUDIBLE TO ENVIRONMENT. AMBU BAG AT BEDSIDE. HEAD OF BED GREATER THAN 30 DEGREES. NOTICED ADEQUATE BILATERAL CHEST RISE AND FALL. PATIENT IS IN NO RESPIRATORY DISTRESS AT THIS TIME. SUCTIONED SMALL CLEAR/WHITE THIN SECRETIONS FROM ETT AND SMALL WHITE THIN ORALLY. ORAL CARE WAS DONE AND PT TOLERATED WELL. BILATERAL BREATH SOUNDS ON AUSCULTATION; UPPER LOBES: FINE CRACKLES LOWER LOBES: FINE CRACKLES PEAK PRESSURE: 22 cmH20 PLATEAU PRESSURE: 15 cmH20 DRIVING PRESSURE: 10 cmH20 CPT AND SCHEDULE TX GIVEN ORDERED AND PT TOLERATED WELL WITH NO ADVERSE REACTION. WILL CONTINUE TO MONITOR PATIENT.
[2022-10-24] MEDS: QUEtiapine FUMARATE 25 MG TAB PO SCH (21:17)
[2022-10-25] VITALS (30 sets, daily range): BP systolic 103–142; BP diastolic 57–86
[2022-10-25] MEDS: PIPERACILLIN/TAZOBACTAM 3.375 GM in DEXTROSE 5% 50 ML IV SCH ×4 (00:26→17:32)
[2022-10-25] MEDS: ACETYLCYSTEINE 20% (200 MG/ML) 200 MG/ML VIAL INH SCH ×4 (00:47→18:51)
[2022-10-25] MEDS: ALBUTEROL SULFATE/IPRATROPIU 3 ML SOL IH SCH ×4 (00:47→18:48)
[2022-10-25] MEDS: LORazepam 2 MG/ML VIAL IVP PRN ×3 (09:00→17:33)
[2022-10-25] MEDS: VANCOMYCIN 1,000 MG in DEXTROSE 5% 250 ML IV SCH ×2 (09:01→21:12)
[2022-10-25] MEDS: QUEtiapine FUMARATE 25 MG TAB PO SCH ×2 (09:02→21:11)
[2022-10-25] MEDS: PANTOPRAZOLE 40 MG INJ VIAL IVP SCH (09:02)
[2022-10-25] MEDS: SERTRALINE 50 MG TAB PO SCH (09:02)
[2022-10-25] MEDS: OLANZapine 5 MG TAB PO SCH (09:02)
[2022-10-25] MEDS: FUROSEMIDE 20 MG/2 ML VIAL IVP SCH ×2 (09:02→17:32)
--- NOTE | 2022-10-25 10:05 | NUR ---
PT PLACED ON CPAP WITH PRESSURE SUPPORT OF 10 AND PEEP OF 5. PT IS AWAKE BUT NOT ABLE TO FOLLOW COMMANDS. ALARMS ARE SET AND AUDIBLE TO NURSE STATION. RN NOTIFIED. WILL CONTINUE TO MONITOR PT.
[2022-10-25] MEDS: DEXMEDETOMIDINE HCL 400 MCG in NACL 0.9% 96 ML IV PRN ×3 (11:35→22:18)
--- NOTE | 2022-10-25 12:05 | NUR ---
PT TOLERATED 2 HOURS OF CPAP. PT PLACED BACK ON PREVIOUS VENTILATOR SETTINGS.
[2022-10-25] MEDS: NOREPINEPHRINE 8 MG in DEXTROSE 5% 250 ML IV PRN (12:47)
--- NOTE | 2022-10-25 15:30 | NUR ---
10/25/22 RD FOLLOW UP COMPLETED PLEASE REFER TO NUTRITION ASSESSMENT UNDER CARE ACTIVITY FOR ESTIMATED NUTRITIONAL NEEDS. 1. CONTINUE JEVITY 1.2 AT 60 ML/HR WITH FWF 200ML Q6H WILL PROVIDE 1848KCAL AND 102GM PROTEIN AND 1962ML FREE WATER, AND PROSOURCE BID PROVIDES 120KCAL AND 30GM PROTEIN. PATIENT WILL BE MEETING 100% OF ESTIMATED NUTRITIONAL NEEDS. 2. MONITOR RESIDUALS, GI AND LAB VALUES. 3. RD TO FOLLOW-UP 2-3 DAYS, HIGH RISK KATHLEEN DOUGLAS RD
[2022-10-25 16:41] LABS: BASOPHILS # (AUTO) 0.1 K/uL (0.00-0.22); BASOPHILS % (AUTO) 1.3 % (0.0-2.0); EOSINOPHILS # (AUTO) 0.2 K/uL (0-0.4); EOSINOPHILS % (AUTO) 2.5 % (0.0-4.0); HEMATOCRIT 21.6 % (36-52); HEMOGLOBIN 7.4 g/dL (12.0-18.0); MEAN CORPUSCULAR HEMOGLOBIN 31 pg (27-31); MEAN CORPUSCULAR HGB CONC 34 g/dL (33-37); MEAN CORPUSCULAR VOLUME 90.9 fL (80-94); MONOCYTES # (AUTO) 0.7 K/uL (0.8-1.0); MONOCYTES % (AUTO) 8.7 % (1.7-9.3); NEUTROPHILS # (AUTO) 6.3 K/uL (1.8-7.7); NEUTROPHILS % (AUTO) 75.5 % (42.2-75.2); PLATELET COUNT (AUTO) 827 K/uL (140-450); RED BLOOD CELL COUNT(AUTO) 2.37 MIL/uL (4.20-6.10); RED CELL DISTRIBUTION WIDTH 17.9 % (11.6-13.7); WHITE BLOOD COUNT (AUTO) 8.4 K/uL (4.8-10.8)
[2022-10-25 17:04] LABS: ANION GAP 12.4 (8-16); CARBON DIOXIDE 27.8 mmol/L (21-32); CREATININE 0.6 mg/dL (0.6-1.3); POTASSIUM 3.2 mmol/L (3.5-5.1)
[2022-10-25] MEDS: POTASSIUM CHLORIDE 20% 40 MEQ/15 ML UDC GT PRN (17:48)
--- NOTE | 2022-10-25 19:25 | NUR ---
RECEIVED PATIENT ON BED WITH HOB ELEVATED TO 30 DEGREE; ORALLY INTUBATED AND VENTILATED AT 24% FIO2 SO2 99%. CARDIACSCOPE SHOWS ON SINUS TACHY HR 107/MIN NO ARRHYTHMIAS SEEN. IV DRIP IN PROGRESS LEVOPHED AT 3 MCG/MIN, PROPOFOL AT 5 MCG/KG/MIN, FENTANYL AT 25 MCG/HR,AND PRECEDEX DRIP AT 1/2MCG/KG/HR VIA PICC LINE TO RIGHT UPPER ARM. ABDOMEN IS SOFT, NON TENDER, HYPOACTIVE BOWEL SOUNDS. ON CONTINOUS TUBE FEEDING JEVITY 1.2 AT 40 ML/HR VIA G TUBE; TOLERATED. WITH PITTS CATH IN PLACE DRAINING TO CLEAR YELLOW URINE OUTPUT; PATENT AND INTACT.
--- NOTE | 2022-10-25 21:00 | NUR ---
TURNED AND REPOSITIONED PATIENT; ORAL CARE DONE WITH VAP KIT.
[2022-10-25] MEDS ORDERED: DEXMEDETOMIDINE HCL 100 MCG/ML 2 ML VIAL IV ONE (22:06)
[2022-10-26] VITALS (31 sets, daily range): BP systolic 90–136; BP diastolic 35–74
[2022-10-26] MEDS: PIPERACILLIN/TAZOBACTAM 3.375 GM in DEXTROSE 5% 50 ML IV SCH ×5 (00:12→23:27)
[2022-10-26] MEDS: fentaNYL citrate 1 MG in NACL 0.9% 80 ML IV PRN (00:16)
[2022-10-26] MEDS: ALBUTEROL SULFATE/IPRATROPIU 3 ML SOL IH SCH ×4 (01:28→19:21)
[2022-10-26] MEDS: ACETYLCYSTEINE 20% (200 MG/ML) 200 MG/ML VIAL INH SCH ×4 (01:28→19:00)
[2022-10-26] MEDS ORDERED: DEXMEDETOMIDINE HCL 100 MCG/ML 2 ML VIAL IV ONE (04:06)
--- NOTE | 2022-10-26 04:30 | NUR ---
HAD BM TO A LARGE AMOUNT OF SOFT, PASTY YELLOW URINE OUTPUT; MORNING BED BATH DONE, KEPT CLEAN DRY AND COMFORTABLE.
--- NOTE | 2022-10-26 07:20 | NUR ---
ENDORSED TO DAY SHIFT SARA ESPINOZA FOR CONTINUITY OF CARE.
--- NOTE | 2022-10-26 07:21 | NUR ---
RECEIVED REPORT FROM BIOGEOGRAPHER NURSE. PATIENT LYING DOWN IN BED, NO DISTRESS NOTED. INTUBATED, ON SEDATION, SPO2 98%. DELFINA PICC LINE IN PLACE, INFUSING DRIPS PER MD ORDERS. PITTS CATH IN PLACE, SKIN INTACT. SAFETY MEASURES IN PLACE, PT SEDATED. WILL CONTINUE TO MONITOR.
[2022-10-26 08:37] LABS: ANION GAP 13.6 (8-16); CARBON DIOXIDE 26.7 mmol/L (21-32); CREATININE 0.7 mg/dL (0.6-1.3); POTASSIUM 3.3 mmol/L (3.5-5.1)
[2022-10-26 08:41] LABS: BASOPHILS # (AUTO) 0.1 K/uL (0.00-0.22); BASOPHILS % (AUTO) 0.8 % (0.0-2.0); EOSINOPHILS # (AUTO) 0.1 K/uL (0-0.4); EOSINOPHILS % (AUTO) 1.9 % (0.0-4.0); HEMATOCRIT 20.4 % (36-52); HEMOGLOBIN 7.1 g/dL (12.0-18.0); LYMPHOCYTES # (AUTO) 0.9 K/uL (2.0-11.5); MEAN CORPUSCULAR HEMOGLOBIN 32 pg (27-31); MEAN CORPUSCULAR HGB CONC 35 g/dL (33-37); MEAN CORPUSCULAR VOLUME 92.2 fL (80-94); MONOCYTES # (AUTO) 0.7 K/uL (0.8-1.0); MONOCYTES % (AUTO) 9.7 % (1.7-9.3); NEUTROPHILS # (AUTO) 5.6 K/uL (1.8-7.7); NEUTROPHILS % (AUTO) 75.6 % (42.2-75.2); PLATELET COUNT (AUTO) 775 K/uL (140-450); RED BLOOD CELL COUNT(AUTO) 2.22 MIL/uL (4.20-6.10); RED CELL DISTRIBUTION WIDTH 18.1 % (11.6-13.7); WHITE BLOOD COUNT (AUTO) 7.4 K/uL (4.8-10.8)
[2022-10-26] MEDS: VANCOMYCIN 1,000 MG in DEXTROSE 5% 250 ML IV SCH ×2 (09:43→21:02)
[2022-10-26] MEDS: PANTOPRAZOLE 40 MG INJ VIAL IVP SCH (09:45)
[2022-10-26] MEDS: FUROSEMIDE 20 MG/2 ML VIAL IVP SCH ×2 (09:45→17:10)
[2022-10-26] MEDS: QUEtiapine FUMARATE 25 MG TAB PO SCH ×2 (09:46→21:03)
[2022-10-26] MEDS: SERTRALINE 50 MG TAB PO SCH (09:46)
[2022-10-26] MEDS: OLANZapine 5 MG TAB PO SCH (09:46)
--- NOTE | 2022-10-26 10:05 | NUR ---
SEDATED AWAKE STABLE NO RESPIRATORY DISTRESS NOTED GOOD CHEST RISE AIRWAY PATENT; PLACED ON CPAP TRIAL NOTED; OLGA/RN NOTIFIED
[2022-10-26] MEDS: DEXMEDETOMIDINE HCL 400 MCG in NACL 0.9% 96 ML IV PRN (11:01)
[2022-10-26] MEDS: PROPOFOL 1000 MG/100 ML PREMIX 100 ML IV PRN (11:18)
--- NOTE | 2022-10-26 12:11 | NUR ---
TOLERATING CPAP TRAIL NOTED; NO APPARENT DISTRESS NOTED; EQUAL CHEST RISE; AIRWAY PATENT
--- NOTE | 2022-10-26 12:13 | NUR ---
PER PALOMA/CORN CUTTER OPERATOR; ON OR AROUND 113 DR. ERIK LOPEZ: DC CPAP TRIAL
--- NOTE | 2022-10-26 13:20 | NUR ---
REMAINS SEDATED LOC AWAKE STABLE NO EVIDENCE FOR SOB NOTED GOOD CHEST RISE AND AERATION THROUGHOUT BILATERAL LUNG TORRES AIRWAY PATENT; REVIEWED MUSIC INDUSTRY INTERNSHIP NOTED BREATH SOUNDS X TWO DAYS; ROUTINE CXR ORDERED
--- NOTE | 2022-10-26 14:38 | NUR ---
HAD BM, CHANGED PATIENT. REPOSITIONED. WILL CONTINUE TO MONITOR.
--- NOTE | 2022-10-26 16:00 | NUR ---
STABLE SEDATED RESTING COMFORTABLY NO SOB NOTED GOOD CHEST RISE AIRWAY PATENT
--- NOTE | 2022-10-26 17:11 | NUR ---
SCHEDULED MEDICATIONS DUE GIVEN. WILL CONTINUE TO MONITOR.
--- NOTE | 2022-10-26 18:45 | NUR ---
CALLED RADIOLOGY DEPT TO FOLLOW-UP ON US THORACENTESIS. PROCEDURE WILL HAVE TO WAIT FOR FRIDAY RADIOLOGIST DOES NOT PERFORM PROCEDURE DURING WEEKENDS. WILL NEED PTT, PTT, INR LABS FOR FRIDAY MORNING PER RADIOLOGIST TECH. WILL PUT ORDERS IN.
--- NOTE | 2022-10-26 19:30 | NUR ---
GAVE REPORT TO FURNITURE ASSEMBLER NURSE FOR CONTINUITY OF CARE.
--- NOTE | 2022-10-26 20:53 | NUR ---
1900- Jakub Mcmahon endorsed pt at bedside
--- NOTE | 2022-10-26 20:54 | NUR ---
1999- repositioned and quite agitated, restraints intact
[2022-10-26] MEDS: ACETAMINOPHEN 325 MG TAB PO PRN (21:03)
[2022-10-26] MEDS: POTASSIUM CHLORIDE 20% 40 MEQ/15 ML UDC GT PRN ×2 (23:15→23:28)
[2022-10-26] MEDS: LORazepam 2 MG/ML VIAL IVP PRN (23:25)
--- NOTE | 2022-10-26 23:29 | NUR ---
2337- potassium liquid 40 meq was given due to low K today 3.3 but day shift did not cover with KCL with PRN in the emar
--- NOTE | 2022-10-26 23:29 | NUR ---
2200-repositioned and oral care done
[2022-10-27] VITALS (29 sets, daily range): BP systolic 92–155; BP diastolic 40–78
[2022-10-27] MEDS: ALBUTEROL SULFATE/IPRATROPIU 3 ML SOL IH SCH (00:20)
[2022-10-27] MEDS: ACETYLCYSTEINE 20% (200 MG/ML) 200 MG/ML VIAL INH SCH (00:20)
[2022-10-27] MEDS: NOREPINEPHRINE 8 MG in DEXTROSE 5% 250 ML IV PRN (01:03)
--- NOTE | 2022-10-27 01:34 | NUR ---
2325- pt is very agitated and biting the ETT so Ativan was given 1 mgIVP
--- NOTE | 2022-10-27 01:35 | NUR ---
0035-PT awakened as the RT gave resp treatment, got agitated easily when touched or suctioned and pt started to desaturates as he moves so restlessly. RT at the bedside trying to trouble shhot the ventilatoe and trying to manually bagged the pt. At 0045 the BP was down to 40/21 and we changed the BP cuff and changed locations till; we get a decent BP120/52 at 0101. SO profopol was increased 20mcgkg /min and fentanyl up to 50 mcg/hr
--- NOTE | 2022-10-27 01:42 | NUR ---
at 0105 - pt. calmed down and RT was able to troubleshoot the ventilator circuit.
--- NOTE | 2022-10-27 03:22 | NUR ---
0200- Quietly resing in bed
[2022-10-27] MEDS: DEXMEDETOMIDINE HCL 400 MCG in NACL 0.9% 96 ML IV PRN ×4 (04:01→20:15)
[2022-10-27] MEDS: PROPOFOL 1000 MG/100 ML PREMIX 100 ML IV PRN ×2 (04:11→20:20)
[2022-10-27 06:31] LABS: ANION GAP 13.1 (8-16); CARBON DIOXIDE 27.6 mmol/L (21-32); CREATININE 0.7 mg/dL (0.6-1.3)
[2022-10-27 06:34] LABS: MAGNESIUM 2.2 mg/dL (1.8-2.4); PHOSPHORUS 2.7 mg/dL (2.5-4.9)
[2022-10-27 06:37] LABS: HEMATOCRIT 26.6 % (36-52); HEMOGLOBIN 9.1 g/dL (12.0-18.0); MEAN CORPUSCULAR HEMOGLOBIN 31 pg (27-31); MEAN CORPUSCULAR HGB CONC 34 g/dL (33-37); MEAN CORPUSCULAR VOLUME 91.5 fL (80-94); PLATELET COUNT (AUTO) 737 K/uL (140-450); RED CELL DISTRIBUTION WIDTH 17.8 % (11.6-13.7); WHITE BLOOD COUNT (AUTO) 6.3 K/uL (4.8-10.8)
[2022-10-27 06:40] LABS: POTASSIUM 2.7 mmol/L (3.5-5.1)
--- NOTE | 2022-10-27 06:47 | NUR ---
0400- calmed down and asleep
--- NOTE | 2022-10-27 06:47 | NUR ---
0500 - complete bed bath given and linen changed
[2022-10-27] MEDS: POTASSIUM CHLORIDE 20% 40 MEQ/15 ML UDC GT PRN (06:53)
[2022-10-27 07:25] LABS: BASOPHILS % (MANUAL) 0 % (0-2); EOSINOPHILS % (MANUAL) 0 % (0-4); LYMPHOCYTES % (MANUAL) 12 % (20-46); MONOCYTES % (MANUAL) 4 % (5-12)
--- NOTE | 2022-10-27 07:25 | NUR ---
RECEIVED ON A [employer] R860 VENTILATOR PLUGGED INTO RED OUTLET TOLERATING WELL WITHOUT COMPLICATIONS NOTED TO AN ENDOTRACHEAL TUBE #7.5 SECURED AT 22cm TEETH/GUM LINE WITH AN ANCHOR FAST CUFF PRESSURE CHECKED NOTED AMBU BAG AT BEDSIDE SEDATED RESTING COMFORTABLY GOOD CHEST RISE AND AERATION THROUGHOUT BILATERAL LUNG FIELD NO EVIDENCE FOR RHONCHI RALES OR WHEEZE AIRWAY PATENT
[2022-10-27] MEDS: PANTOPRAZOLE 40 MG INJ VIAL IVP SCH (08:58)
[2022-10-27] MEDS: FUROSEMIDE 20 MG/2 ML VIAL IVP SCH ×2 (08:59→17:59)
[2022-10-27] MEDS: SERTRALINE 50 MG TAB PO SCH (08:59)
[2022-10-27] MEDS: OLANZapine 5 MG TAB PO SCH (08:59)
[2022-10-27] MEDS: QUEtiapine FUMARATE 25 MG TAB PO SCH ×2 (09:01→20:36)
--- NOTE | 2022-10-27 09:51 | NUR ---
STABLE RESTING COMFORTABLY GOOD CHEST RISE AIRWAY PATENT NO SUCTIONING AT THIS TIME CAMPUS COORDINATOR TO MONITOR
--- NOTE | 2022-10-27 10:02 | NUR ---
SEDATED IRRITABLE WITH INCREASED WOB AT 24 BPM; GOOD CHEST RISE; ENDOTRACHEAL SUCTION FOR SMALL THIN PALE YELLOW SECRETIONS; HHN PRN THERAPY GIVEN AT THIS TIME; HOTEL ASSISTANT MANAGER TO MONITOR Addendum: 10/27/22 at 1439 by Peter Cannon RT DOCUMENTATION ON WRONG PATIENT
--- NOTE | 2022-10-27 11:32 | NUR ---
SEDATED STABLE NO DISTRESS NOTED GOOD CHEST RISE ENDOTRACHEAL SUCTION FOR SMALL THIN PALE YELLOW SECRETION AIRWAY PATENT
[2022-10-27] MEDS: ALBUTEROL SULFATE/IPRATROPIU 3 ML SOL IH PRN (13:53)
--- NOTE | 2022-10-27 13:54 | NUR ---
RESTING WELL GOOD CHEST RISE ENDOTRACHEAL SUCTION FOR SMALL THIN PALE YELLOW SECRETIONS AIRWAY PATENT
[2022-10-27] MEDS: KCL 20 MEQ IN 100 mL PREMIX 100 ML IV SCH ×2 (14:29→17:59)
[2022-10-27 14:38] LABS: PROTHROMBIN TIME 10.6 secs (10.8-13.4)
[2022-10-27] MEDS: fentaNYL citrate 1 MG in NACL 0.9% 80 ML IV PRN (15:50)
--- NOTE | 2022-10-27 19:13 | NUR ---
RCVD PT ON [facility] VENT SETTINGS ACVC 450 R18 +5 24%FIO2. PT IS SATING WELL AT 98%. VENT IS PLUGGED INTO RED OUTLET, FLOWMETER, SUCTION, AND AMBU BAG AT BEDSIDE. WILL CONTINUE TO MONITOR PT.
--- NOTE | 2022-10-27 22:38 | NUR ---
1900-endorsed by reagan whatley icu day shift
--- NOTE | 2022-10-27 22:39 | NUR ---
2000- Quietly resting in bed , repositioned
--- NOTE | 2022-10-27 22:40 | NUR ---
2200- oral care done. afebrile
[2022-10-27] MEDS: LORazepam 2 MG/ML VIAL IVP PRN (22:59)
--- NOTE | 2022-10-27 23:03 | NUR ---
2300-AGITATED AND VERY AWAKE-ATIVAN 1 MG IVP GIVEN
[2022-10-28] VITALS (29 sets, daily range): BP systolic 101–132; BP diastolic 55–75
--- NOTE | 2022-10-28 00:08 | NUR ---
ON AND OFF RESTLESS.rEPOSITIONED Addendum: 10/28/22 at 0017 by Agency 03 RN RN 0000- ON ST W/O ECTOPY
[2022-10-28] MEDS: DEXMEDETOMIDINE HCL 400 MCG in NACL 0.9% 96 ML IV PRN ×2 (01:01→02:13)
--- NOTE | 2022-10-28 03:28 | NUR ---
0400- ORAL CARE DONE, HOB UP FOWLERS POS.
[2022-10-28 05:46] LABS: BASOPHILS % (AUTO) 0.7 % (0.0-2.0); EOSINOPHILS # (AUTO) 0.1 K/uL (0-0.4); EOSINOPHILS % (AUTO) 0.7 % (0.0-4.0); HEMATOCRIT 28.8 % (36-52); HEMOGLOBIN 9.7 g/dL (12.0-18.0); LYMPHOCYTES # (AUTO) 0.7 K/uL (2.0-11.5); LYMPHOCYTES % (AUTO) 9.3 % (20.5-51.1); MEAN CORPUSCULAR HEMOGLOBIN 31 pg (27-31); MEAN CORPUSCULAR HGB CONC 34 g/dL (33-37); MEAN CORPUSCULAR VOLUME 91.8 fL (80-94); MONOCYTES # (AUTO) 0.7 K/uL (0.8-1.0); MONOCYTES % (AUTO) 9.3 % (1.7-9.3); NEUTROPHILS # (AUTO) 5.7 K/uL (1.8-7.7); PLATELET COUNT (AUTO) 797 K/uL (140-450); RED BLOOD CELL COUNT(AUTO) 3.14 MIL/uL (4.20-6.10); RED CELL DISTRIBUTION WIDTH 19.1 % (11.6-13.7); WHITE BLOOD COUNT (AUTO) 7.2 K/uL (4.8-10.8)
[2022-10-28 05:50] LABS: PROTHROMBIN TIME 11.1 secs (10.8-13.4)
[2022-10-28 05:52] LABS: ANION GAP 13.9 (8-16); CARBON DIOXIDE 25.3 mmol/L (21-32); CREATININE 0.7 mg/dL (0.6-1.3); POTASSIUM 4.2 mmol/L (3.5-5.1)
[2022-10-28 06:19] LABS: MAGNESIUM 2.2 mg/dL (1.8-2.4); PHOSPHORUS 3.6 mg/dL (2.5-4.9)
[2022-10-28] MEDS: ALBUTEROL SULFATE/IPRATROPIU 3 ML SOL IH PRN (07:36)
--- NOTE | 2022-10-28 07:37 | NUR ---
RECEIVED ON A [employer] R860 VENTILATOR PLUGGED INTO RED OUTLET TOLERATING WELL WITHOUT ADVERSE REACTIONS NOTED TO AN ENDOTRACHEAL TUBE #7.2 SECURED 22cm TEETH/GUM LINE WITH AN ANCHOR FAST CUFF PRESSURE CHECKED NOTED AMBU BAG AT BEDSIDE SEDATED LOC AWAKE GOOD CHEST RISE ENDOTRACHEAL SUCTION FOR SMALL THIN YELLOW SECRETIONS AIRWAY PATENT
[2022-10-28] MEDS: OLANZapine 5 MG TAB PO SCH (09:17)
[2022-10-28] MEDS: FUROSEMIDE 20 MG/2 ML VIAL IVP SCH ×2 (09:17→17:20)
[2022-10-28] MEDS: PANTOPRAZOLE 40 MG INJ VIAL IVP SCH (09:17)
[2022-10-28] MEDS: QUEtiapine FUMARATE 25 MG TAB PO SCH ×3 (09:18→21:15)
[2022-10-28] MEDS: SERTRALINE 50 MG TAB PO SCH (09:18)
--- NOTE | 2022-10-28 10:23 | NUR ---
SEDATED STABLE GOOD CHEST RISE ENDOTRACHEAL SUCTION FOR SMALL THIN PALE YELLOW SECRETIONS AIRWAY PATENT DESKTOP SUPPORT ASSOCIATE TO ATTEMPT CPAP TRIAL POST THORACENTESIS PROCEDURE
--- NOTE | 2022-10-28 12:22 | NUR ---
NO EVIDENCE FOR RESPIRATORY DISTRESS NOTED GOOD CHEST RISE AND AERATION THROUGHOUT RIGHT SIDE YISEL LML LUNG TORRES AIRWAY PATENT
--- NOTE | 2022-10-28 14:00 | NUR ---
SEDATED NO DISTRESS NOTED GOOD CHEST RISE ENDOTRACHEAL SUCTION FOR MODERATE THIN PALE YELLOW SECRETIONS AIRWAY PATENT
--- NOTE | 2022-10-28 15:10 | NUR ---
10/28/22 RD FOLLOW UP COMPLETED PLEASE REFER TO NUTRITION ASSESSMENT UNDER CARE ACTIVITY FOR ESTIMATED NUTRITIONAL NEEDS. 1. INCREASE TUBE FEEDING RATE TO JEVITY 1.2 AT 65 ML/HR WITH FWF 100ML Q6H WILL PROVIDE 1872KCAL AND 99GM PROTEIN AND 1740ML FREE WATER, AND DISCONTINUE PROSOURCE BID. PATIENT WILL BE MEETING 100% OF ESTIMATED NUTRITIONAL NEEDS. 2. MONITOR RESIDUALS, GI, WEIGHT AND LAB VALUES. 3. RD TO FOLLOW-UP 2-3 DAYS, HIGH RISK KATHLEEN DOUGLAS RD
--- NOTE | 2022-10-28 17:45 | NUR ---
SEDATED AWAKE STABLE GOOD CHEST RISE SUCTION FOR MODERATE THIN PALE YELLOW SECRETIONS AIRWAY PATENT
--- NOTE | 2022-10-28 23:03 | NUR ---
193-endorsement from day shift SARA POWELL WAS MADE AT BEDSIDE
--- NOTE | 2022-10-28 23:04 | NUR ---
2000QUIETLY RESTING IN BED WITH hob UP FOWLERS POSITION, REPOSITIONED AND ORAL CARE DONE
--- NOTE | 2022-10-28 23:06 | NUR ---
2200- sIDERAILS UP TIMES 3, ORAL CRE GIVEN, SOFT WRIST RESTRAINTS INTACT BILATERALLY
[2022-10-29] VITALS (23 sets, daily range): BP systolic 78–128; BP diastolic 37–84
[2022-10-29] MEDS: PROPOFOL 1000 MG/100 ML PREMIX 100 ML IV PRN ×2 (00:26→14:53)
--- NOTE | 2022-10-29 00:37 | NUR ---
0000-ORAL CARE DONE. AFEBRILE
--- NOTE | 2022-10-29 01:47 | NUR ---
0200 suctioned endotrachally and orally with smal amt of whitish loose secretions
[2022-10-29 05:18] LABS: BASOPHILS % (AUTO) 0.7 % (0.0-2.0); EOSINOPHILS # (AUTO) 0.3 K/uL (0-0.4); EOSINOPHILS % (AUTO) 4.1 % (0.0-4.0); HEMATOCRIT 22.7 % (36-52); HEMOGLOBIN 7.5 g/dL (12.0-18.0); LYMPHOCYTES % (AUTO) 27.1 % (20.5-51.1); MEAN CORPUSCULAR HEMOGLOBIN 31 pg (27-31); MEAN CORPUSCULAR HGB CONC 33 g/dL (33-37); MEAN CORPUSCULAR VOLUME 93.2 fL (80-94); MONOCYTES # (AUTO) 1.1 K/uL (0.8-1.0); MONOCYTES % (AUTO) 15.2 % (1.7-9.3); NEUTROPHILS # (AUTO) 3.8 K/uL (1.8-7.7); NEUTROPHILS % (AUTO) 52.9 % (42.2-75.2); PLATELET COUNT (AUTO) 760 K/uL (140-450); RED BLOOD CELL COUNT(AUTO) 2.43 MIL/uL (4.20-6.10); RED CELL DISTRIBUTION WIDTH 18.8 % (11.6-13.7); WHITE BLOOD COUNT (AUTO) 7.2 K/uL (4.8-10.8)
[2022-10-29 05:43] LABS: MAGNESIUM 2.1 mg/dL (1.8-2.4); PHOSPHORUS 3.4 mg/dL (2.5-4.9)
[2022-10-29] MEDS: DEXMEDETOMIDINE HCL 400 MCG in NACL 0.9% 96 ML IV PRN ×4 (05:48→22:13)
[2022-10-29 06:25] LABS: ANION GAP 12.1 (8-16); CARBON DIOXIDE 27.2 mmol/L (21-32); CREATININE 0.6 mg/dL (0.6-1.3); POTASSIUM 3.3 mmol/L (3.5-5.1)
--- NOTE | 2022-10-29 06:38 | NUR ---
0400- Complete bed bath done and complete linen change done
--- NOTE | 2022-10-29 06:39 | NUR ---
0600- oral care done. Quiet this time
--- NOTE | 2022-10-29 08:00 | NUR ---
RECEIVED REPORT FROM THE NIGHT NURSE, PT JANY.[id number]
[2022-10-29] MEDS: PANTOPRAZOLE 40 MG INJ VIAL IVP SCH (08:32)
[2022-10-29] MEDS: OLANZapine 5 MG TAB PO SCH (08:33)
[2022-10-29] MEDS: QUEtiapine FUMARATE 25 MG TAB PO SCH (08:33)
[2022-10-29] MEDS: FUROSEMIDE 20 MG/2 ML VIAL IVP SCH ×2 (08:33→16:53)
[2022-10-29] MEDS: SERTRALINE 50 MG TAB PO SCH (08:35)
[2022-10-29] MEDS: POTASSIUM CHLORIDE 20% 40 MEQ/15 ML UDC GT PRN (08:43)
[2022-10-29] MEDS: fentaNYL citrate 1 MG in NACL 0.9% 80 ML IV PRN (11:15)
[2022-10-29] MEDS: NOREPINEPHRINE 8 MG in DEXTROSE 5% 250 ML IV PRN (14:43)
--- NOTE | 2022-10-29 15:00 | NUR ---
TOOK TO THE LAB THORACENTESIS 650 CC , PT IS STABLE.[id number]
[2022-10-29 15:55] LABS: GLUCOSE,BODY FLUID 85 mg/dL
[2022-10-29 15:56] LABS: APPEARANCE,UNSPUN,BODY FLUID CLOUDY (CLEAR); COLOR,BODY FLUID YELLOW (LT YELLOW); SPECIMENTYPE,BODY FLUID PLEURAL; TOTAL VOLUME,BODY FLUID 650 mL
[2022-10-29 16:15] LABS: WBC, BODY FLUID 242000 /cu. mm.
[2022-10-29 16:16] LABS: RBC, BODY FLUID 20000 /cu. mm.
[2022-10-29 16:17] LABS: POLYNUCLEAR, BODY FLUID 92 %
--- NOTE | 2022-10-29 16:32 | NUR ---
MD ANDERS AT BEDSIDE, PULMONOLOGY. PER MD, CT CHEST WITHOUT CONTRAST FOR TOMORROW, TO FOLLOW UP WITH RESULTS. MD WANTS PATIENTS PT TITRATED OFF OF LEVOPHED WHEN POSSIBLE. PT VSS. NAD NOTED. NO OTHER ORDERS RECEIVED. VENT SETTING REMAIN THE SAME. WILL ENDORSE TO LABORATORY TECHNOLOGIST PLAN OF CARE. WILL CONT TO MONITOR PT.
[2022-10-29 21:32] LABS: APPEARANCE,SPUN,BODY FLUID HAZY (CLEAR)
[2022-10-29] MEDS: fentaNYL citrate - 50mL vial 2.5 MG in NACL 0.9% 200 ML IV PRN (22:13)
[2022-10-30] VITALS (29 sets, daily range): BP systolic 100–125; BP diastolic 50–92
[2022-10-30] MEDS ORDERED: PIPERACILLIN/TAZOBACTAM 3.375 GM VIAL IV ONE ×2 (00:50→06:25)
[2022-10-30] MEDS: PIPERACILLIN/TAZOBACTAM 3.375 GM in DEXTROSE 5% 50 ML IV SCH ×4 (00:59→17:18)
[2022-10-30] MEDS: DEXMEDETOMIDINE HCL 400 MCG in NACL 0.9% 96 ML IV PRN ×4 (03:06→19:34)
[2022-10-30 04:53] LABS: BASOPHILS % (AUTO) 0.5 % (0.0-2.0); EOSINOPHILS # (AUTO) 0.3 K/uL (0-0.4); EOSINOPHILS % (AUTO) 4.3 % (0.0-4.0); HEMATOCRIT 22.9 % (36-52); HEMOGLOBIN 7.8 g/dL (12.0-18.0); LYMPHOCYTES # (AUTO) 1.3 K/uL (2.0-11.5); LYMPHOCYTES % (AUTO) 17.7 % (20.5-51.1); MEAN CORPUSCULAR HEMOGLOBIN 31 pg (27-31); MEAN CORPUSCULAR HGB CONC 34 g/dL (33-37); MEAN CORPUSCULAR VOLUME 90.4 fL (80-94); MONOCYTES # (AUTO) 0.5 K/uL (0.8-1.0); MONOCYTES % (AUTO) 7.3 % (1.7-9.3); NEUTROPHILS % (AUTO) 70.2 % (42.2-75.2); PLATELET COUNT (AUTO) 752 K/uL (140-450); RED BLOOD CELL COUNT(AUTO) 2.53 MIL/uL (4.20-6.10); RED CELL DISTRIBUTION WIDTH 18.5 % (11.6-13.7); WHITE BLOOD COUNT (AUTO) 7.1 K/uL (4.8-10.8)
[2022-10-30 05:36] LABS: CARBON DIOXIDE 27.3 mmol/L (21-32); CREATININE 0.7 mg/dL (0.6-1.3)
[2022-10-30 06:16] LABS: ANION GAP 14.5 (8-16); POTASSIUM 3.8 mmol/L (3.5-5.1)
[2022-10-30 06:49] LABS: PHOSPHORUS 4.5 mg/dL (2.5-4.9)
--- NOTE | 2022-10-30 07:10 | NUR ---
RECEIVED FROM SYSTEM SUPPORT DEVELOPER NURSE SARA ARIZMENDI. ALL CARES ASSUMED.
--- NOTE | 2022-10-30 07:15 | NUR ---
RECEIVED ON BED ON SEMI-MARIO'S POSITION WITH SIDE RAILS RAISED UP FOR SAFETY. SEEN PT AWAKE BUT NO EYE CONTACT OBSERVED. ETT TO VENT: AC/VC FI02 24%, VT- 450 ML - SPO2 AT100% NOT IN RESP DISTRESS. WITH PICC LINE OVER RIGHT UPPER ARM - PATENT AND INTACT- WITH ONGOING DRIPS OF PROPOFOL AT 10 MCG/KG/MIN, PRECEDEX AT 1.2 MCG/KG/HR, FENTANYL AT 100 MCG/HR AND LEVOPHED AT 8 MCG/MIN. WITH GTUBE ON FEEDING OF 65 ML/HR WITH 200 FWF Q 6HRS - PATENT. WITH BILATERAL SOFT WRIST RESTRAINTS. WITH PITTS CATHETER ATTACHED TO BAG WITH YELLOW-COLORED URINE OUTPUT. WITH SAFETY PRECAUTIONS IN PLACE.
--- NOTE | 2022-10-30 07:30 | NUR ---
PT TRANSPORTED TO CT DEPT FOR CHEST CT. V/S STABLE. STILL HOOKED TO VENT.
[2022-10-30] MEDS: NOREPINEPHRINE 8 MG in DEXTROSE 5% 250 ML IV PRN (08:10)
[2022-10-30] MEDS: PANTOPRAZOLE 40 MG INJ VIAL IVP SCH (08:12)
[2022-10-30] MEDS: QUEtiapine FUMARATE 25 MG TAB PO SCH ×2 (08:13→21:29)
[2022-10-30] MEDS: SERTRALINE 50 MG TAB PO SCH (08:13)
[2022-10-30] MEDS: OLANZapine 5 MG TAB PO SCH (08:15)
[2022-10-30] MEDS: FUROSEMIDE 20 MG/2 ML VIAL IVP SCH ×2 (08:15→16:32)
--- NOTE | 2022-10-30 08:49 | NUR ---
SEEN AND EXAMINED BY DR. DO. UPDATED PT INFORMATION.
[2022-10-30] MEDS: PROPOFOL 1000 MG/100 ML PREMIX 100 ML IV PRN (10:35)
--- NOTE | 2022-10-30 11:54 | NUR ---
@ 0730 ASSISTED WITH TRANSPORTING PT TO CT. PT STABLE AND WAS CONNECT TO VENTILATOR THE WHOLE TIME. NO COMPLICATIONS AT THIS TIME. PT VITALS WERE WITH NORMAL RANGE. WILL CONTINUE TO MONITOR.
--- NOTE | 2022-10-30 13:23 | NUR ---
10/30/22 RD FOLLOW UP COMPLETED PLEASE REFER TO NUTRITION ASSESSMENT UNDER CARE ACTIVITY FOR ESTIMATED NUTRITIONAL NEEDS. 1. CONTINUE ON JEVITY 1.2 @ 60ML/H, FWF 200ML Q6H WITH PROSOURCE BID TOLERATED - AT GOAL RATE, WITH PROSOURCES BID AND PROPOFOL AT 3.67, PATIENT WILL RECEIVE 1440 ML VOLUME, 1945 KCAL, 109 G PROTEIN, 1962 ML FW. THIS MEETS 100% OF PATIENTS ESTIMATED NUTRIENT NEEDS. 2. MONITOR GI, GASTRIC RESIDUALS, AND NUTRITION RELATED LAB VALUES 3. RD TO FOLLOW-UP 2-3 DAYS, HIGH RISK REVIEWED BY SORAYA JEFFERS RD
--- NOTE | 2022-10-30 19:27 | NUR ---
REPORT GIVEN TO SARA DIGGS. ALL QUESTIONS ANSWERED.
--- NOTE | 2022-10-30 19:30 | NUR ---
RECEIVED PATIENT ON BED WITH HOB ELEVATED TO 30 DEGREE; ORALLY INTUBATED AND VENTILATED AT 24% FI02 SO2 98%. SEDATED WITH CONTINOUS PRECEDEX, PROPOFOL AND FENTANYL DRIP VIA PICC LINE TO RIGHT UPPER ARM, PATENT AND INTACT. CARDIAC SCOPE SHOWS ON SINUS RHYTHM HR 79/MIN NO ARRHYTHMIAS SEEN. COMMENCING ALSO ON LEVOPHED DRIP AT 4 MCG/MIN FOR BP MAINTENANCE. ABDOMEN IS SOFT, HYPOACTIVE BOWEL SOUNDS. WITH PITTS CATH IN SITU TO GRAVITY DRAINAGE BAG, DRAINING TO CLEAR YELLOW URINE OUTPUT; INTACT. ALL EXTREMITIES WITH CONTRACTURE.
--- NOTE | 2022-10-30 20:30 | NUR ---
TURNED AND REPOSITIONED PATIENT; ORAL CARE DONE WITH VAP KIT.
--- NOTE | 2022-10-30 23:20 | NUR ---
DR. JEFFERS THE ANESTHESIOLOGIST CALLED ON THE PHONE; UPDATED ON PATIENT'S LATEST MEDICAL CONDITION; WITH SUGGESTIONS AND RECOMMENDATIONS BEFORE PATIENT WILL GO FOR TRACHEOSTOMY PLACEMENT TOMORROW MORNING WHICH WAS RELAYED TO DR. DO AND WAS APPROVED AND ORDERS MADE. FOR BLOOD TRANSFUSION OF 1 UNIT PACKED CELLS BEFORE THE SURGERY; REQUESTED TO BLOOD BANK AND FOR 2 D ECHO BEFORE SURGERY; REQUESTED THRU THE RT ON DUTY TO CALL THE SUSTAINABLE COMMUNITIES DESIGNER FIRST THING IN THE MORNING SINCE TRACHEOSTOMY WAS SCHEDULED AT 1120H.
[2022-10-31] VITALS (30 sets, daily range): BP systolic 96–138; BP diastolic 47–68
--- NOTE | 2022-10-31 | NUR ---
NPO POST MIDNIGHT; FOR TRACHEOSTOMY PLACE AT 1120H.
[2022-10-31] MEDS: PROPOFOL 1000 MG/100 ML PREMIX 100 ML IV PRN ×3 (00:05→16:58)
[2022-10-31] MEDS: fentaNYL citrate - 50mL vial 2.5 MG in NACL 0.9% 200 ML IV PRN (00:08)
[2022-10-31] MEDS: PIPERACILLIN/TAZOBACTAM 3.375 GM in DEXTROSE 5% 50 ML IV SCH ×4 (00:15→18:47)
--- NOTE | 2022-10-31 03:40 | NUR ---
1 UNIT PACKED CELLS STARTED TO TRANSFUSED; V/S MONITORED CLOSELY.
[2022-10-31] MEDS ORDERED: DEXMEDETOMIDINE HCL 100 MCG/ML 2 ML VIAL IV ONE (05:20)
--- NOTE | 2022-10-31 06:30 | NUR ---
1 UNIT PACKED CELLS COMPLETED.; NO UNUSUAL BLOOD TRANSFUSION REACTION SEEN.
[2022-10-31] MEDS: DEXMEDETOMIDINE HCL 400 MCG in NACL 0.9% 96 ML IV PRN ×3 (06:31→19:06)
[2022-10-31 08:18] LABS: ANION GAP 12.2 (8-16); CARBON DIOXIDE 25.7 mmol/L (21-32); CREATININE 0.6 mg/dL (0.6-1.3)
[2022-10-31 08:21] LABS: POTASSIUM 2.9 mmol/L (3.5-5.1)
[2022-10-31] MEDS: POTASSIUM CHLORIDE 20% 40 MEQ/15 ML UDC GT PRN (08:23)
[2022-10-31 08:33] LABS: PHOSPHORUS 3.5 mg/dL (2.5-4.9)
[2022-10-31 08:54] LABS: BASOPHILS % (AUTO) 0.8 % (0.0-2.0); EOSINOPHILS # (AUTO) 0.4 K/uL (0-0.4); EOSINOPHILS % (AUTO) 7.9 % (0.0-4.0); HEMATOCRIT 24.5 % (36-52); HEMOGLOBIN 8.3 g/dL (12.0-18.0); LYMPHOCYTES # (AUTO) 0.9 K/uL (2.0-11.5); LYMPHOCYTES % (AUTO) 16.8 % (20.5-51.1); MEAN CORPUSCULAR HEMOGLOBIN 31 pg (27-31); MEAN CORPUSCULAR HGB CONC 34 g/dL (33-37); MEAN CORPUSCULAR VOLUME 89.7 fL (80-94); MONOCYTES # (AUTO) 0.5 K/uL (0.8-1.0); MONOCYTES % (AUTO) 9.8 % (1.7-9.3); NEUTROPHILS # (AUTO) 3.4 K/uL (1.8-7.7); NEUTROPHILS % (AUTO) 64.7 % (42.2-75.2); PLATELET COUNT (AUTO) 508 K/uL (140-450); RED BLOOD CELL COUNT(AUTO) 2.74 MIL/uL (4.20-6.10); RED CELL DISTRIBUTION WIDTH 17.4 % (11.6-13.7); WHITE BLOOD COUNT (AUTO) 5.2 K/uL (4.8-10.8)
[2022-10-31] MEDS ORDERED: KCL 20 MEQ IN 100 mL PREMIX 200 ML IV ONE (09:00)
[2022-10-31] MEDS: OLANZapine 5 MG TAB PO SCH (09:24)
[2022-10-31] MEDS: SERTRALINE 50 MG TAB PO SCH (09:26)
[2022-10-31] MEDS: QUEtiapine FUMARATE 25 MG TAB PO SCH ×2 (09:27→20:28)
[2022-10-31] MEDS: PANTOPRAZOLE 40 MG INJ VIAL IVP SCH (09:28)
[2022-10-31] MEDS: FUROSEMIDE 20 MG/2 ML VIAL IVP SCH ×2 (09:28→17:00)
[2022-10-31] MEDS ORDERED: MIDODRINE 5 MG TAB PO SCH (13:00)
[2022-10-31] MEDS: MIDODRINE 5 MG TAB PO SCH ×2 (14:02→18:47)
--- NOTE | 2022-10-31 22:45 | NUR ---
1929- shift endorsement by CHANTELL WASHCOAT WIPER at bedside
--- NOTE | 2022-10-31 22:46 | NUR ---
1999_ repositioned and oral care done
--- NOTE | 2022-10-31 22:47 | NUR ---
2200=-remains sedated but off levophed.Quiet this time
[2022-11-01] VITALS (32 sets, daily range): BP systolic 71–122; BP diastolic 34–80
[2022-11-01] MEDS ORDERED: fentaNYL citrate 0.05 MG/ML VIAL ONE (01:00)
--- NOTE | 2022-11-01 01:18 | NUR ---
0106- We decided to mix the Fentanyl drip into 100 Ml of N. Saline with 1000mg bec theres no available 2500 mg i n the Pixes and janitorial supervisor was informed
--- NOTE | 2022-11-01 02:06 | NUR ---
0200- suctione endotracheally and orally with loose whitish secretions
[2022-11-01] MEDS: PROPOFOL 1000 MG/100 ML PREMIX 100 ML IV PRN ×2 (03:02→13:30)
[2022-11-01] MEDS: ACETAMINOPHEN 325 MG TAB PO PRN (04:18)
[2022-11-01] MEDS: NOREPINEPHRINE 8 MG in DEXTROSE 5% 250 ML IV PRN (04:55)
--- NOTE | 2022-11-01 05:45 | NUR ---
0430- complete bed bath and linen changed done
[2022-11-01] MEDS: PIPERACILLIN/TAZOBACTAM 3.375 GM in DEXTROSE 5% 50 ML IV SCH ×6 (05:51→23:36)
[2022-11-01] MEDS: MIDODRINE 5 MG TAB PO SCH ×3 (06:00→18:35)
--- NOTE | 2022-11-01 08:15 | NUR ---
MD ANDERS, BASKETBALLS AND FOOTBALLS REVERSER AT BEDSIDE FOR ASSESS. NO NEW ORDERS RECEIVED. PLAN FOR PATIENT TO BE TITRATED OFF LEVOPHED TOLERATED. PT MUST BE OFF OF VASOPRESSORS FOR 24 HOURS BEFORE MD Sarbjit LEE, SURGERY, CAN PLACE TRACH ON PATIENT. VSS. NAD NOTED. WILL CONT TO MONITOR PT.
[2022-11-01] MEDS: PANTOPRAZOLE 40 MG INJ VIAL IVP SCH (08:46)
[2022-11-01] MEDS: QUEtiapine FUMARATE 25 MG TAB PO SCH ×2 (08:46→21:43)
[2022-11-01] MEDS: FUROSEMIDE 20 MG/2 ML VIAL IVP SCH ×2 (08:46→17:18)
[2022-11-01] MEDS: OLANZapine 5 MG TAB PO SCH (08:47)
[2022-11-01] MEDS: SERTRALINE 50 MG TAB PO SCH (08:47)
[2022-11-01] MEDS: DEXMEDETOMIDINE HCL 400 MCG in NACL 0.9% 96 ML IV PRN ×2 (09:25→16:24)
[2022-11-01 11:20] LABS: BASOPHILS % (AUTO) 0.7 % (0.0-2.0); EOSINOPHILS # (AUTO) 0.3 K/uL (0-0.4); EOSINOPHILS % (AUTO) 5.8 % (0.0-4.0); HEMATOCRIT 30.4 % (36-52); HEMOGLOBIN 10.3 g/dL (12.0-18.0); LYMPHOCYTES # (AUTO) 0.8 K/uL (2.0-11.5); LYMPHOCYTES % (AUTO) 13.4 % (20.5-51.1); MEAN CORPUSCULAR HEMOGLOBIN 30 pg (27-31); MEAN CORPUSCULAR HGB CONC 34 g/dL (33-37); MEAN CORPUSCULAR VOLUME 88.9 fL (80-94); MONOCYTES # (AUTO) 0.6 K/uL (0.8-1.0); MONOCYTES % (AUTO) 10.8 % (1.7-9.3); NEUTROPHILS # (AUTO) 4.1 K/uL (1.8-7.7); NEUTROPHILS % (AUTO) 69.3 % (42.2-75.2); PLATELET COUNT (AUTO) 548 K/uL (140-450); RED BLOOD CELL COUNT(AUTO) 3.42 MIL/uL (4.20-6.10)
[2022-11-01 11:25] LABS: ANION GAP 12.3 (8-16); CARBON DIOXIDE 28.1 mmol/L (21-32); CREATININE 0.9 mg/dL (0.6-1.3); POTASSIUM 3.4 mmol/L (3.5-5.1)
[2022-11-01] MEDS: POTASSIUM CHLORIDE 20% 40 MEQ/15 ML UDC GT PRN (13:15)
--- NOTE | 2022-11-01 15:27 | NUR ---
11/01/22 FOLLOW UP COMPLETED PLEASE REFER TO NUTRITION ASSESSMENT UNDER CARE ACTIVITY FOR ESTIMATED NUTRITIONAL NEEDS. 1. CONTINUE WITH JEVITY 1.2 @ 60ML/H, FWF 200ML Q6H WITH PROSOURCE BID TOLERATED - AT GOAL RATE, WITH PROSOURCES BID (PROVIDES 120 KCAL AND 30 GM PROTEIN/DAY) AND PROPOFOL AT 11 ML/HR (PROVIDES 290 KCAL/DAY), PATIENT WILL RECEIVE 1440 ML VOLUME, 2138 KCAL, 109 G PROTEIN, 1962 ML FW DAILY. THIS MEETS 100% OF PATIENTS ESTIMATED NUTRIENT NEEDS. 2. MONITOR GI, GASTRIC RESIDUALS, AND NUTRITION RELATED LAB VALUES 3. RD TO FOLLOW-UP 2-3 DAYS, HIGH RISK REVIEWED BY SORAYA JEFFERS RD
[2022-11-01] MEDS: fentaNYL citrate - 50mL vial 2.5 MG in NACL 0.9% 200 ML IV PRN (18:29)
[2022-11-02] VITALS (32 sets, daily range): BP systolic 89–130; BP diastolic 34–96
[2022-11-02] MEDS: ACETAMINOPHEN 325 MG TAB PO PRN (00:18)
[2022-11-02] MEDS: PROPOFOL 1000 MG/100 ML PREMIX 100 ML IV PRN ×2 (01:46→14:01)
[2022-11-02] MEDS: DEXMEDETOMIDINE HCL 400 MCG in NACL 0.9% 96 ML IV PRN ×4 (03:54→23:04)
[2022-11-02] MEDS: PIPERACILLIN/TAZOBACTAM 3.375 GM in DEXTROSE 5% 50 ML IV SCH ×4 (05:00→23:00)
[2022-11-02 06:08] LABS: BASOPHILS # (AUTO) 0.1 K/uL (0.00-0.22); BASOPHILS % (AUTO) 0.9 % (0.0-2.0); EOSINOPHILS # (AUTO) 0.4 K/uL (0-0.4); EOSINOPHILS % (AUTO) 5.6 % (0.0-4.0); HEMATOCRIT 21.8 % (36-52); HEMOGLOBIN 7.3 g/dL (12.0-18.0); LYMPHOCYTES # (AUTO) 1.4 K/uL (2.0-11.5); LYMPHOCYTES % (AUTO) 19.5 % (20.5-51.1); MEAN CORPUSCULAR HEMOGLOBIN 30 pg (27-31); MEAN CORPUSCULAR HGB CONC 33 g/dL (33-37); MEAN CORPUSCULAR VOLUME 89.8 fL (80-94); MONOCYTES # (AUTO) 0.5 K/uL (0.8-1.0); MONOCYTES % (AUTO) 7.1 % (1.7-9.3); NEUTROPHILS # (AUTO) 4.8 K/uL (1.8-7.7); NEUTROPHILS % (AUTO) 66.9 % (42.2-75.2); PLATELET COUNT (AUTO) 608 K/uL (140-450); RED BLOOD CELL COUNT(AUTO) 2.43 MIL/uL (4.20-6.10); RED CELL DISTRIBUTION WIDTH 16.9 % (11.6-13.7); WHITE BLOOD COUNT (AUTO) 7.2 K/uL (4.8-10.8)
[2022-11-02] MEDS: MIDODRINE 5 MG TAB PO SCH ×3 (06:26→18:20)
--- NOTE | 2022-11-02 06:53 | NUR ---
1929-ENDORSEMENT BY ICU NURSE DAY SHIFT DONE AT BEDSIDE
--- NOTE | 2022-11-02 06:55 | NUR ---
1999- REPOSITIONED AND ORAL CARE DONE
--- NOTE | 2022-11-02 06:56 | NUR ---
2200- SUCTIONE ENDOTRACHEALLY ANDORALLY DONE
--- NOTE | 2022-11-02 06:57 | NUR ---
0000-QUIETLY RESTING IN BED
--- NOTE | 2022-11-02 06:58 | NUR ---
0400- COMPLETE BED BATH DONEAND LINEN CHANGED DONE
--- NOTE | 2022-11-02 06:58 | NUR ---
0200- ON SR W/0 ECTOPY
--- NOTE | 2022-11-02 06:59 | NUR ---
0600- NO RESP DISTRESS
[2022-11-02 07:10] LABS: MAGNESIUM 1.9 mg/dL (1.8-2.4); PHOSPHORUS 3.5 mg/dL (2.5-4.9)
--- NOTE | 2022-11-02 07:36 | NUR ---
Received report on pt. Pt in no signs of pain or distress, intubated on ventilator, sedated. On diprivan, precedex, fentanyl, and levophed drips. Bilateral soft wrist restraints in place for safety. Richard in place draining urine to gravity.
[2022-11-02] MEDS: FUROSEMIDE 20 MG/2 ML VIAL IVP SCH ×2 (08:38→17:05)
[2022-11-02] MEDS: PANTOPRAZOLE 40 MG INJ VIAL IVP SCH (08:38)
[2022-11-02] MEDS: OLANZapine 5 MG TAB PO SCH (08:39)
[2022-11-02] MEDS: SERTRALINE 50 MG TAB PO SCH (08:40)
[2022-11-02] MEDS: QUEtiapine FUMARATE 25 MG TAB PO SCH ×2 (08:40→20:30)
[2022-11-02 09:36] LABS: CARBON DIOXIDE 26.1 mmol/L (21-32); CREATININE 0.7 mg/dL (0.6-1.3); POTASSIUM 3.1 mmol/L (3.5-5.1)
--- NOTE | 2022-11-02 09:58 | NUR ---
Dr. Kohli rounding on pt
--- NOTE | 2022-11-02 10:38 | NUR ---
Dr. Kohli informed regarding potassium level 3.1, new orders made for K 60 mEq replacement.
[2022-11-02] MEDS ORDERED: POTASSIUM CHLORIDE 20% 40 MEQ/15 ML UDC GT SCH ×2 (11:00→15:00)
[2022-11-02] MEDS: NOREPINEPHRINE 8 MG in DEXTROSE 5% 250 ML IV PRN (18:19)
[2022-11-02] MEDS: fentaNYL citrate - 50mL vial 2.5 MG in NACL 0.9% 200 ML IV PRN (18:20)
--- NOTE | 2022-11-02 18:47 | NUR ---
Pt in no signs of pain or distress. Remains intubated and sedated, remains on levophed drip. Richard with urine draining to gravity. GT with feeding. Bilateral soft wrist restraints in place for safety. Will endorse plan of care to RN
--- NOTE | 2022-11-02 19:54 | NUR ---
193- BEdside endorsement given [facility] ICU day shift RN and her orientee Di .pt is not resltless
--- NOTE | 2022-11-02 19:57 | NUR ---
1950- sedated with Profopol at 20mch/kg/min , fentanyl at 100 mcg/hr,precedex at 1.2mcg/kg/hr and Levophed at 3mcg/min
[2022-11-03] VITALS (28 sets, daily range): BP systolic 91–115; BP diastolic 33–68
[2022-11-03] MEDS: ACETAMINOPHEN 325 MG TAB PO PRN (00:12)
--- NOTE | 2022-11-03 00:42 | NUR ---
2000- oral care done after suctioning endotracheally and orally
--- NOTE | 2022-11-03 00:43 | NUR ---
2200- repositioned and sireals up times3
--- NOTE | 2022-11-03 00:46 | NUR ---
0012- temp checked 100.4, tylenol 650 mg via GT was given
[2022-11-03] MEDS: PROPOFOL 1000 MG/100 ML PREMIX 100 ML IV PRN (02:13)
[2022-11-03] MEDS: DEXMEDETOMIDINE HCL 400 MCG in NACL 0.9% 96 ML IV PRN ×2 (04:40→20:51)
[2022-11-03] MEDS: PIPERACILLIN/TAZOBACTAM 3.375 GM in DEXTROSE 5% 50 ML IV SCH ×4 (05:02→23:09)
[2022-11-03 06:12] LABS: ANION GAP 11.6 (8-16); CARBON DIOXIDE 26.5 mmol/L (21-32); CREATININE 0.7 mg/dL (0.6-1.3); POTASSIUM 3.1 mmol/L (3.5-5.1)
[2022-11-03 06:15] LABS: MAGNESIUM 1.9 mg/dL (1.8-2.4); PHOSPHORUS 3.2 mg/dL (2.5-4.9)
[2022-11-03 06:52] LABS: BASOPHILS % (AUTO) 0.4 % (0.0-2.0); EOSINOPHILS # (AUTO) 0.4 K/uL (0-0.4); HEMATOCRIT 25.6 % (36-52); HEMOGLOBIN 8.8 g/dL (12.0-18.0); LYMPHOCYTES # (AUTO) 1.1 K/uL (2.0-11.5); LYMPHOCYTES % (AUTO) 17.4 % (20.5-51.1); MEAN CORPUSCULAR HEMOGLOBIN 31 pg (27-31); MEAN CORPUSCULAR HGB CONC 35 g/dL (33-37); MONOCYTES # (AUTO) 0.8 K/uL (0.8-1.0); MONOCYTES % (AUTO) 11.8 % (1.7-9.3); NEUTROPHILS # (AUTO) 4.2 K/uL (1.8-7.7); NEUTROPHILS % (AUTO) 64.4 % (42.2-75.2); PLATELET COUNT (AUTO) 496 K/uL (140-450); RED BLOOD CELL COUNT(AUTO) 2.87 MIL/uL (4.20-6.10); RED CELL DISTRIBUTION WIDTH 17.3 % (11.6-13.7); WHITE BLOOD COUNT (AUTO) 6.5 K/uL (4.8-10.8)
[2022-11-03] MEDS: MIDODRINE 5 MG TAB PO SCH ×3 (07:00→18:27)
[2022-11-03] MEDS: OLANZapine 5 MG TAB PO SCH (08:41)
[2022-11-03] MEDS: PANTOPRAZOLE 40 MG INJ VIAL IVP SCH (08:42)
[2022-11-03] MEDS: FUROSEMIDE 20 MG/2 ML VIAL IVP SCH ×2 (08:42→17:00)
[2022-11-03] MEDS: SERTRALINE 50 MG TAB PO SCH (08:42)
[2022-11-03] MEDS: QUEtiapine FUMARATE 25 MG TAB PO SCH ×2 (08:42→21:02)
--- NOTE | 2022-11-03 10:20 | NUR ---
11/03/22 FOLLOW UP COMPLETED.PLEASE REFER TO NUTRITION ASSESSMENT UNDER CARE ACTIVITY FOR ESTIMATED NUTRITIONAL NEEDS. 1. CONTINUE WITH JEVITY 1.2 @ 60ML/HR, FWF 200ML Q6H WITH PROSOURCE BID TOLERATED - WITH PROSOURCES BID (PROVIDES 120 KCAL AND 30 GM PROTEIN/DAY) AND PROPOFOL AT 7.3 ML/HR (11 ML/HR (PROVIDES 193 KCAL/DAY), PATIENT WILL RECEIVE 1440 ML VOLUME, 2041 KCAL, 110 G PROTEIN, 1962 ML FW DAILY. THIS MEETS 100% OF PATIENTS ESTIMATED NUTRIENT NEEDS. 2. MONITOR GASTRIC RESIDUALS AND NUTRITION RELATED LAB VALUES 3. RD TO FOLLOW-UP 2-3 DAYS, HIGH RISK CIERRA LEACH RD
--- NOTE | 2022-11-03 18:41 | NUR ---
PT REMAINED STABLE. LEVOPHED WAS TITRATED OFF ON 1700. SEDATION REMAINED THE SAME AND PATIENT REMAINED COMFORTABLE. NO BM FOR SHIFT AND SKIN WAS CLEAR AND INTACT UPON ASSESSMENT
[2022-11-03] MEDS: fentaNYL citrate - 50mL vial 2.5 MG in NACL 0.9% 200 ML IV PRN (18:56)
[2022-11-03] MEDS: POTASSIUM CHLORIDE 20% 40 MEQ/15 ML UDC GT PRN (19:12)
--- NOTE | 2022-11-03 20:29 | NUR ---
1999-BEDSIDE ENDORSEMENT GIVEN BY SARA GARCIA DAY SHIFT
--- NOTE | 2022-11-03 20:30 | NUR ---
2030- rEPOSITIONED AND ORAL CARE GIVEN
--- NOTE | 2022-11-03 22:36 | NUR ---
2100 HOB UP TO SEMI - FOWLERS POSITION. SIDERAILS UP BILATERALLY
--- NOTE | 2022-11-03 23:35 | NUR ---
no agitation this time
[2022-11-04] VITALS (30 sets, daily range): BP systolic 87–117; BP diastolic 33–70
--- NOTE | 2022-11-04 00:20 | NUR ---
0000-on SR w/o ectopy
--- NOTE | 2022-11-04 02:12 | NUR ---
0200-asleep. no resp. distress
[2022-11-04] MEDS: DEXMEDETOMIDINE HCL 400 MCG in NACL 0.9% 96 ML IV PRN ×2 (02:21→20:10)
--- NOTE | 2022-11-04 04:45 | NUR ---
0400- complete bed bath done and linen changed done
[2022-11-04 05:10] LABS: BASOPHILS # (AUTO) 0.1 K/uL (0.00-0.22); EOSINOPHILS # (AUTO) 0.4 K/uL (0-0.4); EOSINOPHILS % (AUTO) 6.3 % (0.0-4.0); HEMATOCRIT 25.1 % (36-52); HEMOGLOBIN 8.5 g/dL (12.0-18.0); LYMPHOCYTES # (AUTO) 0.6 K/uL (2.0-11.5); LYMPHOCYTES % (AUTO) 8.4 % (20.5-51.1); MEAN CORPUSCULAR HEMOGLOBIN 30 pg (27-31); MEAN CORPUSCULAR HGB CONC 34 g/dL (33-37); MEAN CORPUSCULAR VOLUME 88.9 fL (80-94); MONOCYTES # (AUTO) 0.6 K/uL (0.8-1.0); MONOCYTES % (AUTO) 8.5 % (1.7-9.3); NEUTROPHILS # (AUTO) 5.3 K/uL (1.8-7.7); NEUTROPHILS % (AUTO) 75.8 % (42.2-75.2); PLATELET COUNT (AUTO) 421 K/uL (140-450); RED BLOOD CELL COUNT(AUTO) 2.82 MIL/uL (4.20-6.10); RED CELL DISTRIBUTION WIDTH 17.1 % (11.6-13.7)
[2022-11-04] MEDS: PIPERACILLIN/TAZOBACTAM 3.375 GM in DEXTROSE 5% 50 ML IV SCH ×4 (05:22→23:12)
[2022-11-04 05:29] LABS: ANION GAP 13.6 (8-16); CARBON DIOXIDE 26.5 mmol/L (21-32); CREATININE 0.6 mg/dL (0.6-1.3); POTASSIUM 3.1 mmol/L (3.5-5.1)
[2022-11-04 05:34] LABS: PHOSPHORUS 3.5 mg/dL (2.5-4.9)
[2022-11-04] MEDS: MIDODRINE 5 MG TAB PO SCH ×3 (06:39→19:00)
--- NOTE | 2022-11-04 06:43 | NUR ---
0600- oral care done
[2022-11-04] MEDS: QUEtiapine FUMARATE 25 MG TAB PO SCH ×2 (09:33→20:24)
[2022-11-04] MEDS: SERTRALINE 50 MG TAB PO SCH (09:34)
[2022-11-04] MEDS: OLANZapine 5 MG TAB PO SCH (09:34)
[2022-11-04] MEDS: PANTOPRAZOLE 40 MG INJ VIAL IVP SCH (09:34)
[2022-11-04] MEDS: FUROSEMIDE 20 MG/2 ML VIAL IVP SCH (09:34)
[2022-11-04] MEDS: PROPOFOL 1000 MG/100 ML PREMIX 100 ML IV PRN ×2 (12:24→20:04)
[2022-11-04] MEDS ORDERED: MAG SULF 2000 MG/WATER PREMIX 50 ML IV PRN (12:40)
--- NOTE | 2022-11-04 13:04 | NUR ---
FAXED SUBACUTE PAPERWORK TO LUIS AND ANAID MUNIZ.BOTH ARE INTERESTED IN THE PATIENT WHEN HE IS READY TO BE DISCHARGED.
--- NOTE | 2022-11-04 18:37 | NUR ---
PT REMAINED STABLE THROUGHOUT SHIFT AND HASNT NEEDED TO GO BACK ON PRESSORS. NO FEVERS. HAD 2 BMS AND WAS CLEANED. ALL SKIN CLEAR OF AND BREAKDOWN. REPOSITIONED Q 2 HOURS. HAD EPISODES OF TACHYCARDIA THAT SEEMED TO BE ASSOCIATED WITH IRRITABILITY. CHEST XRAY ORDERED BY DOCTORS TO ASSESS FOR RESPIRATORY DISTRESS. ABDOMEN WAS NOTABLY DISTENDED BUT HAS SOFTENED AFTER BOWEL MOVEMENT AND PASSING GAS
--- NOTE | 2022-11-04 19:10 | NUR ---
RECEIVED REPORT FROM MORNING SHIFT NURSE SARA ARIZMENDI. ALL CARES ASSUMED. RECEIVED PT AWAKE AND NOT IN DISTRESS.
[2022-11-04] MEDS: fentaNYL citrate - 50mL vial 2.5 MG in NACL 0.9% 200 ML IV PRN (20:14)
[2022-11-05] VITALS (30 sets, daily range): BP systolic 89–114; BP diastolic 40–82
[2022-11-05] MEDS: PROPOFOL 1000 MG/100 ML PREMIX 100 ML IV PRN ×2 (03:24→16:17)
[2022-11-05] MEDS: DEXMEDETOMIDINE HCL 400 MCG in NACL 0.9% 96 ML IV PRN (03:28)
[2022-11-05 04:45] LABS: PROTHROMBIN TIME 11.5 secs (10.8-13.4)
[2022-11-05 05:10] LABS: BASOPHILS % (AUTO) 0.3 % (0.0-2.0); EOSINOPHILS # (AUTO) 0.1 K/uL (0-0.4); EOSINOPHILS % (AUTO) 2.1 % (0.0-4.0); HEMATOCRIT 22.4 % (36-52); HEMOGLOBIN 7.7 g/dL (12.0-18.0); LYMPHOCYTES # (AUTO) 0.9 K/uL (2.0-11.5); LYMPHOCYTES % (AUTO) 13.9 % (20.5-51.1); MEAN CORPUSCULAR HEMOGLOBIN 30 pg (27-31); MEAN CORPUSCULAR HGB CONC 34 g/dL (33-37); MEAN CORPUSCULAR VOLUME 88.5 fL (80-94); MONOCYTES # (AUTO) 0.5 K/uL (0.8-1.0); MONOCYTES % (AUTO) 7.8 % (1.7-9.3); NEUTROPHILS # (AUTO) 4.8 K/uL (1.8-7.7); NEUTROPHILS % (AUTO) 75.9 % (42.2-75.2); PLATELET COUNT (AUTO) 346 K/uL (140-450); RED BLOOD CELL COUNT(AUTO) 2.53 MIL/uL (4.20-6.10); RED CELL DISTRIBUTION WIDTH 17.2 % (11.6-13.7); WHITE BLOOD COUNT (AUTO) 6.3 K/uL (4.8-10.8)
[2022-11-05 05:19] LABS: ANION GAP 11.3 (8-16); CARBON DIOXIDE 27.3 mmol/L (21-32); CREATININE 0.5 mg/dL (0.6-1.3)
[2022-11-05] MEDS: PIPERACILLIN/TAZOBACTAM 3.375 GM in DEXTROSE 5% 50 ML IV SCH ×3 (05:24→18:51)
[2022-11-05 05:25] LABS: PHOSPHORUS 3.3 mg/dL (2.5-4.9)
[2022-11-05 05:28] LABS: POTASSIUM 2.6 mmol/L (3.5-5.1)
[2022-11-05] MEDS: POTASSIUM CHLORIDE 20% 40 MEQ/15 ML UDC PO PRN (05:32)
--- NOTE | 2022-11-05 05:32 | NUR ---
K LEVEL -2.1 - KCL GIVEN PER GT. PHYSICIAN INFORMED.
[2022-11-05] MEDS: MIDODRINE 5 MG TAB PO SCH ×3 (06:52→18:51)
[2022-11-05] MEDS ORDERED: Z-GUARD PASTE TP PRN (07:20)
[2022-11-05] MEDS ORDERED: KCL 20 MEQ IN 100 mL PREMIX 200 ML IV SCH (08:00)
[2022-11-05] MEDS: PANTOPRAZOLE 40 MG INJ VIAL IVP SCH (08:30)
[2022-11-05] MEDS: OLANZapine 5 MG TAB PO SCH (08:31)
[2022-11-05] MEDS: SERTRALINE 50 MG TAB PO SCH (08:31)
[2022-11-05] MEDS: QUEtiapine FUMARATE 25 MG TAB PO SCH ×2 (08:31→20:53)
--- NOTE | 2022-11-05 14:15 | NUR ---
PER SURGERY MD DAVID OH RESCHEDULED TRACH PLACEMENT FOR TOMORROW 11/06 @ 0830. TO RESUME PEG TUBE FEEDING. NPO AFTER MN.
--- NOTE | 2022-11-05 14:30 | NUR ---
TUBE FEEDING RESUMED, GOAL OF 60CC/HR JEVITY, STARTED AT 30CC/HR TO MAKE SURE PATIENT TOLERATES WELL. VSS. NAD NOTED. TO BE NPO AFTER MN.
[2022-11-05 19:08] LABS: ANION GAP 12.5 (8-16); CARBON DIOXIDE 24.2 mmol/L (21-32); CREATININE 0.6 mg/dL (0.6-1.3); POTASSIUM 3.7 mmol/L (3.5-5.1)
[2022-11-06] VITALS (28 sets, daily range): BP systolic 83–115; BP diastolic 52–76
[2022-11-06] MEDS: PIPERACILLIN/TAZOBACTAM 3.375 GM in DEXTROSE 5% 50 ML IV SCH ×4 (00:30→18:01)
[2022-11-06] MEDS: PROPOFOL 1000 MG/100 ML PREMIX 100 ML IV PRN ×2 (04:21→18:19)
[2022-11-06 05:59] LABS: BASOPHILS % (AUTO) 0.3 % (0.0-2.0); EOSINOPHILS # (AUTO) 0.2 K/uL (0-0.4); EOSINOPHILS % (AUTO) 3.6 % (0.0-4.0); HEMOGLOBIN 7.9 g/dL (12.0-18.0); LYMPHOCYTES # (AUTO) 0.7 K/uL (2.0-11.5); LYMPHOCYTES % (AUTO) 11.4 % (20.5-51.1); MEAN CORPUSCULAR HEMOGLOBIN 31 pg (27-31); MEAN CORPUSCULAR HGB CONC 34 g/dL (33-37); MEAN CORPUSCULAR VOLUME 89.5 fL (80-94); MONOCYTES # (AUTO) 0.4 K/uL (0.8-1.0); MONOCYTES % (AUTO) 7.6 % (1.7-9.3); NEUTROPHILS # (AUTO) 4.5 K/uL (1.8-7.7); NEUTROPHILS % (AUTO) 77.1 % (42.2-75.2); PLATELET COUNT (AUTO) 371 K/uL (140-450); RED BLOOD CELL COUNT(AUTO) 2.57 MIL/uL (4.20-6.10); RED CELL DISTRIBUTION WIDTH 17.2 % (11.6-13.7); WHITE BLOOD COUNT (AUTO) 5.8 K/uL (4.8-10.8)
[2022-11-06] MEDS: MIDODRINE 5 MG TAB PO SCH ×3 (06:10→18:00)
[2022-11-06 06:26] LABS: CREATININE 0.5 mg/dL (0.6-1.3)
[2022-11-06 06:30] LABS: MAGNESIUM 2.1 mg/dL (1.8-2.4); PHOSPHORUS 3.2 mg/dL (2.5-4.9)
[2022-11-06] MEDS: KCL 20 MEQ IN 100 mL PREMIX 200 ML IV SCH ×2 (08:00→14:50)
--- NOTE | 2022-11-06 08:02 | NUR ---
RECEIVED ON A Devtap R860 VENTILATOR VENTILATOR PLUGGED INTO RED OUTLET TOLERATING WELL WITHOUT ADVERSE REACTIONS NOTED TO AN ENDOTRACHEAL TUBE #7.5 SECURED AT 22cm TEETH/GUM LINE WITH AN ANCHOR FAST CUFF PRESSURE CHECKED NOTED AMBU BAG AT BEDSIDE LOC AWAKE SEDATED EQUAL CHEST RISE GOOD AERATION THROUGHOUT BILATERAL LUNG TORRES AIRWAY PATENT
[2022-11-06] MEDS: OLANZapine 5 MG TAB PO SCH (09:00)
[2022-11-06] MEDS: QUEtiapine FUMARATE 25 MG TAB PO SCH ×2 (09:00→20:22)
[2022-11-06] MEDS: SERTRALINE 50 MG TAB PO SCH (09:00)
[2022-11-06] MEDS: PANTOPRAZOLE 40 MG INJ VIAL IVP SCH (09:41)
--- NOTE | 2022-11-06 10:23 | NUR ---
STABLE GOOD CHEST RISE ENDOTRACHEAL SUCTION FOR MODERATE THIN PALE YELLOW SECRETIONS AIRWAY PATENT
--- NOTE | 2022-11-06 10:23 | NUR ---
INCREASED FIO2 TO 24%; NORIS/REGISTRY WATCHER AUT[employer] NOTIFIED
--- NOTE | 2022-11-06 10:54 | NUR ---
NELY NURSEAT BEDSIDE AT THIS TIME
--- NOTE | 2022-11-06 11:07 | NUR ---
WOUND CARE NOTE: PT. 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 WOUND BED PINK AND MOIST, NO ODOR, CHRISTOPHER-WOUND SKIN MOIST EXTENDED TO BUTTOCKS WITH SKIN INTACT. PT IS PENDING WITH OR PROCEDURES OF TRACH AND PEG. POC DISCUSSED WITH PRIMARY RN FUNMILAYO. RECOMMENDATIONS: -CLEANSE COCCYX WITH NS, PAT DRY, APPLY THIN LAYER HYDROGEL TO WOUND BED AND COVER WITH DRY DRESSING QD AND PRN IF SOILING. -APPLY THIN LAYER OF Z GUARD TO BUTTOCKS AND CHRISTOPHER-ANAL BID AND GIAN -POSITIONING: TURN AND REPOSITION PATIENT Q 2H OR SOONER USE PILLOWS TO KEEP BONY PROMINENCES FROM DIRECT CONTACT WITH SURFACES USE REPOSITIONING WEDGES TO PROVIDE 30-DEGREE ANGLE FOR SIDE LYING POSITIONS OFFLOADING OR FOAM DRESSING TO ALL TUBING TO PREVENT MEDICAL DEVICES RELATED PRESSURE INJURY -RE-EVALUATING AND MANAGING INCONTINENCE MONITOR SKIN CONDITION DURING POSITION CHANGE DO NOT MASSAGE REDNESS, BONY PROMINENCES FREQUENT CHRISTOPHER-CARE AND PROVIDE BARRIER CREAMS PRN IF SOILING MOISTURE CONTROL BY OFFER BED MAGANA/URINAL /ABSORBENT PAD TO WICK AND HOLD MOISTURE KEEP SKIN DRY AND PROTECT FROM FRICTION -MANAGE FRICTION/SHEAR/MOBILITY KEEP HOB AT THE LOWEST LEVEL OF ELEVATION NO MORE THAN 30 DEGREE UNLESS OTHERWISE CONTRAINDICATED USE LIFT SHEET OR TRANSFER DEVICE TO MOVE PATIENT AND PREVENT LATERAL SHEER. PROTECT HEELS, ELBOWS BONY PROMINENCES WITH SKIN BERRIES OR FOAM DRESSING IF EXPOSED TO FRICTION OFFLOAD BILATERAL HEELS BY PLACING PILLOWS UNDER CALVES AT ALL TIMES, UNLESS OTHERWISE CONTRAINDICATED -PRESSURE REDISTRIBUTION SURFACE THERAPY TAWANNA ISOFLEX MATTRESS -NUTRITION: PLEASE FOLLOW RD RECOMMENDATIONS AND OFFER NUTRITION SUPPLEMENTS IF ORDERED. PLEASE CONTACT WOUND CARE NURSE FOR ANY QUESTION AND CHANGE OF WOUND CONDITION.
--- NOTE | 2022-11-06 13:22 | NUR ---
SEDATED STABLE AWAKE "WATCHING TV" EQUAL CHEST RISE GOOD AERATION THROUGHOUT BILATERAL LUNG TORRES AIRWAY PATENT
[2022-11-06] MEDS: SKINTEGRITY HYDROGEL TP SCH (14:40)
[2022-11-06] MEDS ORDERED: KCL 20 MEQ IN 100 mL PREMIX 100 ML IV ONE (14:47)
--- NOTE | 2022-11-06 15:02 | NUR ---
hand off report to dorothy(chacorta)
--- NOTE | 2022-11-06 15:39 | NUR ---
11/06/22 RD FOLLOW UP COMPLETED PLEASE REFER TO NUTRITION ASSESSMENT UNDER CARE ACTIVITY FOR ESTIMATED NUTRITIONAL NEEDS. 1. MONITOR NPO STATUS 2. WHEN/IF MEDICALLY APPROPRIATE TO RESUME TF, CONTINUE WITH JEVITY 1.2 @ 60ML/HR GOAL RATE, FWF 200ML Q6H WITH PROSOURCE BID TOLERATED - WITH PROSOURCES BID (PROVIDES 120 KCAL AND 30 GM PROTEIN/DAY) AND WITH PROPOFOL AT 7.3 ML/HR (PROVIDES 193 KCAL/DAY), PATIENT WILL RECEIVE 1440 ML VOLUME, 2041 KCAL, 110 G PROTEIN, 1962 ML FW DAILY. THIS MEETS 100% OF ESTIMATED KCAL AND PROTEIN NEEDS. 3. RD TO FOLLOW-UP 2-3 DAYS, HIGH RISK REVIEWED BY SORAYA JEFFERS RD
--- NOTE | 2022-11-06 19:10 | NUR ---
ENDORSED BEDSIDE REPORT TO STEEL WOOL MACHINE OPERATOR MANAGER SEMICONDUCTOR, ALBINA, FOR CONTINUITY OF CARE
--- NOTE | 2022-11-06 19:31 | NUR ---
1924- ENDORSED BY [facility] WOODS BOSS DAYSHIFT AT BEDSIDE. PT. IS AWAKE AND CALM WITH PROFOPOL AT 30MCG/KG/MIN AND FENTANYL AT 75 MCG/HR.ETT IN PLACE WITHOUT RESP DISTRESS.SIDERAILSUP TIMES 3 AND BED IN LOW POS.RESTRAINTS IN PLACE BOTH WRISTS
--- NOTE | 2022-11-06 21:19 | NUR ---
2100- SUCTIONED ENDOTRACHEALLY AND ORALLY OBTAINING SMALL AMT. OF LOOSE WHITE CLEAR SECRETIONS.ORAL CARE GIVEN
[2022-11-07] VITALS (33 sets, daily range): BP systolic 86–125; BP diastolic 26–92
--- NOTE | 2022-11-07 00:39 | NUR ---
2300 REPOSITIONED IN BED, ORAL CARE DONE
[2022-11-07] MEDS: PIPERACILLIN/TAZOBACTAM 3.375 GM in DEXTROSE 5% 50 ML IV SCH ×4 (00:47→17:11)
[2022-11-07] MEDS: PROPOFOL 1000 MG/100 ML PREMIX 100 ML IV PRN ×2 (00:51→06:24)
--- NOTE | 2022-11-07 02:40 | NUR ---
0100- REMAINS SEDATED WITH PROFOPOL AT 30 MCG /KG/MINAND FENTANYL DRIP AT 75MCG/HR
--- NOTE | 2022-11-07 04:54 | NUR ---
0330- COMPLETE BED BATH AND LINEN CHANGED DONE
[2022-11-07 05:48] LABS: BASOPHILS % (AUTO) 0.3 % (0.0-2.0); EOSINOPHILS # (AUTO) 0.3 K/uL (0-0.4); EOSINOPHILS % (AUTO) 3.6 % (0.0-4.0); HEMATOCRIT 24.6 % (36-52); HEMOGLOBIN 8.3 g/dL (12.0-18.0); LYMPHOCYTES # (AUTO) 0.9 K/uL (2.0-11.5); LYMPHOCYTES % (AUTO) 13.4 % (20.5-51.1); MEAN CORPUSCULAR HEMOGLOBIN 31 pg (27-31); MEAN CORPUSCULAR HGB CONC 34 g/dL (33-37); MEAN CORPUSCULAR VOLUME 90.3 fL (80-94); MONOCYTES # (AUTO) 0.6 K/uL (0.8-1.0); MONOCYTES % (AUTO) 8.2 % (1.7-9.3); NEUTROPHILS # (AUTO) 5.3 K/uL (1.8-7.7); NEUTROPHILS % (AUTO) 74.5 % (42.2-75.2); PLATELET COUNT (AUTO) 400 K/uL (140-450); RED BLOOD CELL COUNT(AUTO) 2.73 MIL/uL (4.20-6.10); RED CELL DISTRIBUTION WIDTH 17.5 % (11.6-13.7); WHITE BLOOD COUNT (AUTO) 7.1 K/uL (4.8-10.8)
[2022-11-07 06:07] LABS: ANION GAP 16.7 (8-16); CREATININE 0.6 mg/dL (0.6-1.3); POTASSIUM 3.7 mmol/L (3.5-5.1)
[2022-11-07] MEDS: MIDODRINE 5 MG TAB PO SCH ×3 (06:20→18:03)
--- NOTE | 2022-11-07 06:20 | NUR ---
0400 AWAKE AND AGITATED
--- NOTE | 2022-11-07 06:21 | NUR ---
0600 - NPO AFTER MIDNIDGHT FOR POSSIBLE TRACHESOTOMY SO PROAMATINEWAS NOT GIVEN
--- NOTE | 2022-11-07 08:00 | NUR ---
RECEIVED PATIENT IN BED, ETT TO VENT WITH THE SAME SETTING, NPO FOR TRACH TODAY, SEDATED WITH PROPOFOL AT 30 MCG/KG/MIN , FENTANYL 75 MCG/KG/HR , NS AT TKO, INFUSING AT DELFINA, DRESSING INTACT, GT ON HOLD FOR THE PROCEDURE, PITTS CATH IN PLACE, RESTRAIN ON BOTH WRIST, WILL CONTINUE TO MONITOR.
[2022-11-07] MEDS: SKINTEGRITY HYDROGEL TP SCH (08:41)
[2022-11-07] MEDS: OLANZapine 5 MG TAB PO SCH (08:41)
[2022-11-07] MEDS: SERTRALINE 50 MG TAB PO SCH (08:42)
[2022-11-07] MEDS: QUEtiapine FUMARATE 25 MG TAB PO SCH ×2 (08:42→21:19)
[2022-11-07] MEDS: PANTOPRAZOLE 40 MG INJ VIAL IVP SCH (08:42)
[2022-11-07] MEDS ORDERED: fentaNYL citrate 0.05 MG/ML VIAL ONE (08:57)
[2022-11-07] MEDS ORDERED: BUPIVACAINE-MPF 0.25% 30 ML VIAL INJ ONE (09:01)
[2022-11-07] MEDS ORDERED: LIDOCAINE 1% 500 MG/50 ML VIAL ONE (09:01)
--- NOTE | 2022-11-07 09:10 | NUR ---
PT TRANSFERRED TO OR
[2022-11-07] MEDS ORDERED: ROCURONIUM 50 MG/5 ML VIAL IV ONE (09:14)
--- NOTE | 2022-11-07 09:52 | NUR ---
BACK FROM OR FOR THACHEOSTOMY WITH SUTURE AND GAUZE OOZED WITH BLOOD, DR AGOSTO AT BEDSIDE STATES REMOVED GAUZE ON FRIDAY MORNING BY RT, RT AWARE THE ORDER. PUT PATIENT ON ICU MONITOR, PATIENT IS STILL LETHARGIC, VS IS STABLE, WILL CONTINUE TO MONITOR.
[2022-11-07] MEDS ORDERED: PHENYLEPHRINE 10 MG/ML VIAL ONE (10:16)
--- NOTE | 2022-11-07 15:15 | NUR ---
TURN AND REPOSITION Q2H TO KEEP SKIN CLEAN AND DRY, BM XI WITH MODERATE YELLOW STOOL, PERINEAL CARE AND PITTS CARE GIVEN. CHANGED ALL LINENS AND GOWN.
--- NOTE | 2022-11-07 18:47 | NUR ---
SUCTION FROM TRACH WITH THICK YELLOWISH SECRETION, PATIENT IS WATCHING TV AT THIS TIME.
--- NOTE | 2022-11-07 19:45 | NUR ---
RECEIVED PATIENT ON BED; AWAKE, ALERT BUT NON VERBAL; ON TRACH TO VENT AT AT 24% FIO2, SO2 100%. ON SINUS TACHY HR 121/MIN, NO ARRHYTHMIAS SEEN. IVF IN PROGRESS NORMAL SALINE TO KVO VIA PICC LINE TO RIGHT UPPER ARM; PATENT AND INTACT.ABDOMEN IS SOFT, NON TENDER, WITH ACTIVE BOWEL SOUNDS. ON CONTINOUS TUBE FEEDING JEVITY 1.2 AT 45 ML/HR VIA G TUBE; TOLERATED. WITH PITTS CATH IN PLACE TO GRAVITY DRAINAGE BAG DRAINING TO CLEAR YELLOW URINE OUTPUT; INTACT.
--- NOTE | 2022-11-07 21:00 | NUR ---
HAD BM TO A LARGE AMOUNT OF SOFT LOOSE YELLOW BROWN STOOL; KEPT CLEAN DRY AND COMFORTABLE;
[2022-11-08] VITALS (22 sets, daily range): BP systolic 102–122; BP diastolic 58–76
[2022-11-08] MEDS: PIPERACILLIN/TAZOBACTAM 3.375 GM in DEXTROSE 5% 50 ML IV SCH ×3 (00:30→11:20)
--- NOTE | 2022-11-08 04:00 | NUR ---
ORAL CARE DONE WITH VAP KIT; REPOSITIONED
[2022-11-08 05:52] LABS: BASOPHILS % (AUTO) 0.2 % (0.0-2.0); EOSINOPHILS # (AUTO) 0.1 K/uL (0-0.4); HEMOGLOBIN 8.1 g/dL (12.0-18.0); LYMPHOCYTES # (AUTO) 0.9 K/uL (2.0-11.5); LYMPHOCYTES % (AUTO) 10.5 % (20.5-51.1); MEAN CORPUSCULAR HEMOGLOBIN 31 pg (27-31); MEAN CORPUSCULAR HGB CONC 34 g/dL (33-37); MEAN CORPUSCULAR VOLUME 90.3 fL (80-94); MONOCYTES # (AUTO) 0.6 K/uL (0.8-1.0); MONOCYTES % (AUTO) 7.4 % (1.7-9.3); NEUTROPHILS # (AUTO) 6.9 K/uL (1.8-7.7); NEUTROPHILS % (AUTO) 80.9 % (42.2-75.2); PLATELET COUNT (AUTO) 422 K/uL (140-450); RED BLOOD CELL COUNT(AUTO) 2.65 MIL/uL (4.20-6.10); RED CELL DISTRIBUTION WIDTH 17.1 % (11.6-13.7); WHITE BLOOD COUNT (AUTO) 8.5 K/uL (4.8-10.8)
[2022-11-08] MEDS: MIDODRINE 5 MG TAB PO SCH ×2 (06:13→12:18)
[2022-11-08 06:17] LABS: ANION GAP 15.1 (8-16); CARBON DIOXIDE 22.1 mmol/L (21-32); CREATININE 0.6 mg/dL (0.6-1.3); POTASSIUM 3.2 mmol/L (3.5-5.1)
--- NOTE | 2022-11-08 07:15 | NUR ---
RECEIVED BEDSIDE REPORT FROM CATERINA RN FOR CONTINUITY OF CARE. PT TRACH TO VENT, AC VC FIO2 24%, VT 450, RATE 18, PEEP 5. AWAKE AND CLAM. SR ON MONITOR. PICC LINE TO DELFINA, INFUSING TKO NS @3ML/H. G TUBE IN PLACE, JEVITY1.2, @GOAL 45ML/H, FWF 200ML Q6H. PITTS IN PLACE TO GRAVITY. SAFETY PRECAUTION IN PLACE, AND WILL CONTINUE TO MONITOR.
[2022-11-08] MEDS: POTASSIUM CHLORIDE 20% 40 MEQ/15 ML UDC PO PRN (07:26)
[2022-11-08] MEDS: OLANZapine 5 MG TAB PO SCH (08:55)
[2022-11-08] MEDS: PANTOPRAZOLE 40 MG INJ VIAL IVP SCH (08:55)
[2022-11-08] MEDS: SERTRALINE 50 MG TAB PO SCH (08:55)
[2022-11-08] MEDS: QUEtiapine FUMARATE 25 MG TAB PO SCH (08:56)
[2022-11-08] MEDS: SKINTEGRITY HYDROGEL TP SCH (08:56)
--- NOTE | 2022-11-08 11:05 | NUR ---
DR CHARLENE WILKERSON AT BEDSIDE. UPDATED PT INFORMATION.
[2022-11-08 13:46] LABS: ANION GAP 14.5 (8-16); CARBON DIOXIDE 22.8 mmol/L (21-32); CREATININE 0.6 mg/dL (0.6-1.3); POTASSIUM 4.3 mmol/L (3.5-5.1)
--- NOTE | 2022-11-08 14:44 | NUR ---
RECEIVED ORDER FOR PATIENT TO GO TO [facility] FACILITY. FAXED ALL PAPERWORK TO [facility]. SPOKE WITH ESAU AT [facility] LOCATED AT [address] [place] [address]. PATIENT WILL BE GOING TO ROOM 2C UNDER DR FALL AND DR TORRES. TRANSPORTATION ARRANGED WITH [facility] WITH A 1700 SUB PLANT MANAGER TIME. ICU NURSE AWARE OF THE ABOVE INFORMATION, CALLED [facility] AND LEFT A VOICE MAIL REGARDING THE ABOVE INFORMATION.
--- NOTE | 2022-11-08 14:58 | NUR ---
11/08/22 RD FOLLOW UP COMPLETED PLEASE REFER TO NUTRITION ASSESSMENT UNDER CARE ACTIVITY FOR ESTIMATED NUTRITIONAL NEEDS. 1. RECOMMEND INCREASING JEVITY 1.2 TO 55ML/HR GOAL RATE, FWF 200ML Q6H WITH PROSOURCE BID TOLERATED - WITH PROSOURCES BID (PROVIDES 120 KCAL AND 30 GM PROTEIN/DAY) PATIENT WILL RECEIVE 1320 ML VOLUME, 1704 KCAL, 102 G PROTEIN, 1865 ML FW DAILY. THIS MEETS 96% OF ESTIMATED KCAL NEEDS AND 100% ESTIMATED PROTEIN NEEDS. 2. MONITOR GI SYMPTOMS AND GASTRIC RESIDUALS 3. RD TO FOLLOW-UP 2-3 DAYS, HIGH RISK REVIEWED BY SORAYA JEFFERS RD
--- NOTE | 2022-11-08 16:42 | NUR ---
CALL [facility] [phone], SBAR GIVEN TO SUMMER FOR CONTINUITY OF CARE. ALL QUESTION ANSWERED.
--- NOTE | 2022-11-08 17:15 | NUR ---
PT PICKED UP AT THIS TIME. SBAR GIVEN TO LADARIUS RN,ALL QUESTIONS ANSWERED.
[2022-11-08] MEDS ORDERED: METOPROLOL 25 MG TAB PO SCH (21:00)
== END 2022-11-08 17:10 | DRG 5 ==
LOC: MED 09:48 → MTU 14:04 → MIC 10-17 16:15
PROVIDERS: ADMIT Family Medicine; ATTEND Family Medicine
PROC: 5A1955Z Respiratory Ventilation, Greater than 96 Consecutive Hours (ICD-10-PCS; principal; 2022-10-18)
PROC: 0B9M8ZX Drainage of Bilateral Lungs, Via Natural or Artificial Opening Endoscopic, Diagnostic (ICD-10-PCS; 2022-10-18)
PROC: 0W9B3ZZ Drainage of Left Pleural Cavity, Percutaneous Approach (ICD-10-PCS; 2022-10-18)
PROC: 0BH17EZ Insertion of Endotracheal Airway into Trachea, Via Natural or Artificial Opening (ICD-10-PCS; 2022-10-18)
PROC: 30233N1 Transfusion of Nonautologous Red Blood Cells into Peripheral Vein, Percutaneous Approach (ICD-10-PCS; 2022-10-20)
PROC: 0W9B3ZZ Drainage of Left Pleural Cavity, Percutaneous Approach (ICD-10-PCS; 2022-10-29)
PROC: 0B110F4 Bypass Trachea to Cutaneous with Tracheostomy Device, Open Approach (ICD-10-PCS; 2022-11-07)
DX: A41.9 Sepsis, unspecified organism (principal); J69.0 Pneumonitis due to inhalation of food and vomit; J86.9 Pyothorax without fistula; G93.41 Metabolic encephalopathy; E43 Unspecified severe protein-calorie malnutrition; D63.8 Anemia in other chronic diseases classified elsewhere; E83.39 Other disorders of phosphorus metabolism; E87.0 Hyperosmolality and hypernatremia; E86.0 Dehydration; N39.0 Urinary tract infection, site not specified; G80.9 Cerebral palsy, unspecified; E87.6 Hypokalemia; E03.9 Hypothyroidism, unspecified; Z20.822 Contact with and (suspected) exposure to COVID-19; R65.20 Severe sepsis without septic shock; F79 Unspecified intellectual disabilities; R13.10 Dysphagia, unspecified; J96.01 Acute respiratory failure with hypoxia; Z93.1 Gastrostomy status; Z68.22 Body mass index [BMI] 22.0-22.9, adult
CPT/HCPCS: 31500; 36415; 36430; 36600; 71045; 71250; 76604; 76942; 80048; 80053; 80202; 81001; 82150; 82550; 82553; 82803; 82945; 83036; 83605; 83615; 83690; 83735; 83880; 84100; 84157; 84436; 84439; 84443; 84479; 84484; 85018; 85025; 85610; 85730; 86886; 86900; 86901; 86920; 87040; 87070; 87075; 87086; 87186; 87205; 88305; 89051; 89220; 93005; 94002; 94003; 94640; 94667; 96361; 96372; 96374; 99291; C9113; J1940; J2001; J2060; J2270; J2370; J2405; J2543; J2704; J3010; J3370; J3480; J3490; J7030; J7060; J7120; J7608; P9016; P9046; Q0092